=== PATIENT | female | born 1935 | race Caucasian/White ===

== ENCOUNTER 2018-07-08 15:27 | Observation (INO) | payer OTHER ==
--- OUTSIDE RECORDS SUMMARY | 2018-07-08 15:30 | XMS REPORT ---
:1935 Author Organization eClinicalWorks Care Team Providers Name Role Phone Curiel, Na Provider Role Unavailable Allergies No Known Allergies Problems Problem Type Condition Code Onset Dates Condition Status Problem Urinary incontinence, unspecified R32 Active type Problem Urinary tract infection without N39.0 Active hematuria, site unspecified Problem History of aspiration pneumonia Z87.01 Active Problem CKD (chronic kidney disease) stage N18.3 Active 3, GFR 30-59 ml/min Problem Osteoporosis M81.0 Active Problem Unsteady gait R26.81 Active Problem Atrial fibrillation I48.91 Active Problem Depression F32.9 Active Problem Dysphagia R13.10 Active Problem Iron deficiency anemia, D50.9 Active unspecified iron deficiency anemia type Problem Aspiration into airway, subsequent T17.908D Active encounter Problem Gastro-esophageal reflux disease K21.9 Active without esophagitis Problem Diaphragmatic hernia without K44.9 Active obstruction or gangrene Problem COPD (chronic obstructive J44.9 Active pulmonary disease) Problem Allergic rhinitis J30.9 Active Problem Anemia D64.9 Active Problem Benign essential HTN I10 Active Problem Obese E66.9 Active Problem Osteoarthritis M19.90 Active Problem Barretts esophagus K22.70 Active Problem Overactive bladder N32.81 Active Problem Rhinitis J31.0 Active Problem Cough productive of purulent R05 Active sputum Medications No Known Medications Results No Known Results Summary Purpose eClinicalWorks Submission
--- OUTSIDE RECORDS SUMMARY | 2018-07-08 15:30 | XMS REPORT | Clinical Summary ---
:1935 Author Organization [facility] Address [address] [place] [address] Care Team Providers Name Role Phone Asked, No Pcp Primary Care Provider Unavailable Allergies Active Allergy Reactions Severity Noted Date Comments Levofloxacin Swelling High 06/22/2017 Tongue swelled up and pt states she "nearly choked". Medications Medication Sig Dispensed Refills Start Date End Date Status tiotropium Place 1 capsule 0 Active (SPIRIVA) 18 mcg into inhaler and per inhalation inhale once daily. capsule ipratropium-albuter Take 3 mL by 0 Active ol (DUO-NEB) nebulization 3 0.5-2.5 mg/mL (three) times a nebulizer day. fluticasone Inhale 1 puff 2 0 Active (FLOVENT HFA) 110 (two) times a day. mcg/actuation inhaler acetaminophen-codei Take 1 tablet by 0 Active ne (TYLENOL WITH mouth 2 (two) CODEINE #3) 300-30 times a day. mg per tablet diclofenac Apply 1 0 Active (VOLTAREN) 1 % gel application topically 4 (four) times a day as needed. cephalexin (KEFLEX) Take 500 mg by 0 Active 500 MG capsule mouth daily. rivaroxaban Take 20 mg by 0 Active (XARELTO) 20 mg mouth daily. tablet citalopram (CeleXA) Take 20 mg by 0 Active 20 MG tablet mouth every morning. esomeprazole Take 40 mg by 0 Active (NexIUM) 40 MG mouth daily before capsule breakfast. ferrous sulfate 325 Take 65 mg by 0 Active (65 FE) MG tablet mouth daily. calcium Take 1 tablet by 0 Active carbonate-vitamin mouth 2 (two) D3 500 mg-200 unit times a day with per tablet meals. multivitamin Take 1 tablet by 0 Active (THERAGRAN) tablet mouth daily. vit B comp Take 1 tablet by 0 Active no.5-xmymq-T-biotin mouth daily. (NEPHRO-FOSTER RX) 1-60-300 mg-mg-mcg tablet omega-3 acid ethyl Take 1,200 mg by 0 Active esters (LOVAZA) 1 mouth daily. gram capsule loratadine Take 10 mg by 0 Active (CLARITIN) 10 mg mouth daily. tablet amLODIPine Take 1 tablet (5 30 tablet 0 06/24/2017 07/24/2017 (NORVASC) 5 mg mg total) by mouth tablet daily for 30 days. diltiazem CD Take 1 capsule 30 capsule 0 06/24/2017 07/24/2017 (CardIZEM CD) 120 (120 mg total) by MG 24 hr capsule mouth daily for 30 days. Active Problems Problem Noted Date Atrial fibrillation 06/22/2017 Social History Tobacco Use Types Packs/Day Years Used Date Former Smoker Cigarettes 40 Tobacco Cessation: Counseling Given: Yes Sex Assigned at Date Recorded Not on file Job Start Date Occupation Industry Not on file Not on file Not on file Travel History Travel Start Travel End No recent travel history available. Last Filed Vital Signs Not on file Plan of Treatment Health Maintenance Due Date Last Done Comments SHINGRIX VACCINE (1 of 2) 1985 ZOSTER VACCINE 1995 PNEUMOCOCCAL POLYSACCHARIDE VACCINE AGE 65 AND OVER 2000 PNEUMOCOCCAL-13 2000 INFLUENZA VACCINE 03/07/2018 Results Not on fileafter 07/07/2017 Insurance Payer Benefit Plan / Group Subscriber ID Type Phone Address MEDICARE MEDICARE PART A AND B xxxxxxxxxx Medicare [facility] xxxxxxxxxxx Advance Directives Patient has advance care planning documents on file. For more information, please contact:[place] [address]
--- OUTSIDE RECORDS SUMMARY | 2018-07-08 15:30 | XMS REPORT ---
[...] K22.70 Active Problem Overactive bladder N32.81 Active Assessment Atrial fibrillation I48.91 Active Problem Rhinitis J31.0 Active Problem Cough productive of purulent R05 Active sputum Medications Medication Code System Code Instructions Start End Date Status Dosage Date Nexium [facility] 38027255644 40 MG Orally Once Active 1 capsule a day Results No Known Results Summary Purpose eClinicalWorks Submission
--- OUTSIDE RECORDS SUMMARY | 2018-07-08 15:30 | XMS REPORT ---
:1935 Author Organization eClinicalWorks Care Team Providers Name Role Phone Curiel, Na Provider Role Unavailable Allergies No Known Allergies Problems Problem Type Condition Code Onset Dates Condition Status Problem Overactive bladder N32.81 Active Assessment Aspiration into airway, subsequent T17908D Active encounter Problem Cough productive of purulent R05 Active sputum Assessment Dysphagia R13.10 Active Problem Urinary incontinence, unspecified R32 Active type Problem Urinary tract infection without N39.0 Active hematuria, site unspecified Problem History of aspiration pneumonia Z87.01 Active Problem CKD (chronic kidney disease) stage N18.3 Active 3, GFR 30-59 ml/min Problem Unsteady gait R26.81 Active Problem Osteoporosis M81.0 Active Problem Atrial fibrillation I48.91 Active Problem Dysphagia R13.10 Active Problem Depression F32.9 Active Problem Iron deficiency anemia, D50.9 Active unspecified iron deficiency anemia type Problem Aspiration into airway, subsequent T178D Active encounter Problem Gastro-esophageal reflux disease K21.9 Active without esophagitis Problem Diaphragmatic hernia without K44.9 Active obstruction or gangrene Problem COPD (chronic obstructive J44.9 Active pulmonary disease) Problem Allergic rhinitis J30.9 Active Problem Anemia D64.9 Active Problem Benign essential HTN I10 Active Problem Obese E66.9 Active Problem Osteoarthritis M19.90 Active Problem Barretts esophagus K22.70 Active Problem Rhinitis J31.0 Active Medications No Known Medications Results No Known Results Summary Purpose eClinicalWorks Submission
--- OUTSIDE RECORDS SUMMARY | 2018-07-08 15:30 | XMS REPORT ---
:1935 Author Organization eClinicalWorks Care Team Providers Name Role Phone Curiel, Na Provider Role Unavailable Allergies, Adverse Reactions, Alerts Substance Reaction Event Type Levaquin Info Not Available Drug Allergy Iodine Info Not Available Drug Allergy Problems Problem Type Condition Code Onset Dates Condition Status Assessment Unsteady gait R26.81 Active Assessment CKD (chronic kidney disease) stage N18.3 Active 3, GFR 30-59 ml/min Assessment Osteoarthritis M19.90 Active Assessment Gastro-esophageal reflux disease K21.9 Active without esophagitis Assessment Aspiration into airway, subsequent T178D Active encounter Assessment Diaphragmatic hernia without K44.9 Active obstruction or gangrene Assessment Atrial fibrillation I48.91 Active Problem Osteoarthritis M19.90 Active Assessment COPD (chronic obstructive J44.9 Active pulmonary disease) Problem Overactive bladder N32.81 Active Assessment Iron deficiency anemia, D50.9 Active unspecified iron deficiency anemia type Problem Cough productive of purulent R05 Active sputum Problem History of aspiration pneumonia Z87.01 Active Problem Urinary incontinence, unspecified R32 Active type Problem Unsteady gait R26.81 Active Problem Gastro-esophageal reflux disease K21.9 Active without esophagitis Problem Rhinitis J31.0 Active Problem Barretts esophagus K22.70 Active Problem CKD (chronic kidney disease) stage N18.3 Active 3, GFR 30-59 ml/min Assessment Benign essential HTN I10 Active Problem Aspiration into airway, subsequent T17908D Active encounter Problem Urinary tract infection without N39.0 Active hematuria, site unspecified Problem Diaphragmatic hernia without K44.9 Active obstruction or gangrene Problem Iron deficiency anemia, D50.9 Active unspecified iron deficiency anemia type Problem Atrial fibrillation I48.91 Active Problem Osteoporosis M81.0 Active Problem Obese E66.9 Active Problem Depression F32.9 Active Problem COPD (chronic obstructive J44.9 Active pulmonary disease) Problem Allergic rhinitis J30.9 Active Problem Anemia D64.9 Active Problem Benign essential HTN I10 Active Medications Medication Code Code Instructions Start End Status Dosage System Date Date Diltiazem HCl NDC 50373458507 120 MG Orally Active 1 capsule on ER Once a day an empty stomach in the morning Keflex ND 21182714564 250 MG Orally December 05May Active 1 capsule as directed 2017 Lasix ND 64697955857 40 MG Orally Sep 21, Active 1 tablet twice a day 2017 Spiriva ND 66162658738 18 MCG Active 1 capsule HandiHaler Inhalation Once a day Xarelto [facility] 51912867844 20 MG Orally Active 1 tablet with Once a day food Amiodarone HCl ND 05778557835 200 MG Orally Active 1 tablet Once a day Claritin ND 29417255759 10 MG Orally Active 1 tablet Once a day Prolia [facility] 78367646271 60 MG/ML Active not defined Subcutaneous Breo Ellipta [facility] 89939077453 100-25 MCG/INH Active 1 puff Inhalation Once a day Ventolin HFA [facility] 29848457408 108 (90 Base) Active 2 puffs as MCG/ACT needed Inhalation every 6 hrs Clotrimazole [facility] 38190883744 1 % Externally Active 1 application Twice a day to affected area Ketoconazole ND 39411004595 2 % Externally Active 1 application Once a day to affected area Nexium ND 55182206665 40 MG Orally Active 1 capsule Once a day Celexa ND 06528274963 20 MG Orally Active 1 tablet Once a day Flomax ND 77229388183 0.4 MG Orally Rhett Active 1 capsule Once a day 2018 Estrace ND 08349106508 0.1 MG/GM November Active as directed Vaginal twice 2017 weekly Multivitamin ND 09150886493 - Orally Active not defined Adult Results No Known Results Summary Purpose eClinicalWorks Submission
--- OUTSIDE RECORDS SUMMARY | 2018-07-08 15:30 | XMS REPORT ---
[...] purulent R05 Active sputum Medications Medication Code Code Instructions Start End Date Status Dosage System Date Spiriva [facility][NOTE 3] 66862708364 2.5 microgram January 15January 10, Active 2 puffs Respimat Inhaled Once a 20172018 Results No Known Results Summary Purpose [employer] Submission
--- OUTSIDE RECORDS SUMMARY | 2018-07-08 15:31 | XMS REPORT ---
:1935 Author Organization eClinicalWorks Care Team Providers Name Role Phone Sa[place]ie Provider Role Unavailable Allergies, Adverse Reactions, Alerts [...] Obese E66.9 Active Problem Osteoarthritis M19.90 Active Assessment Urinary tract infection without N39.0 Active hematuria, site unspecified Problem Barretts esophagus K22.70 Active Problem Overactive bladder N32.81 Active Problem Rhinitis J31.0 Active Problem Cough productive of purulent R05 Active sputum Medications Medication Code Code Instructions Start End Status Dosage System Date Date Cephalexin [facility] 45475030168 250 MG Orally March 01Aug Active 1 capsule daily 2017 Diltiazem HCl [facility] 00495025191 120 MG Orally Active 1 capsule on ER Once a day an empty stomach in the morning Amiodarone HCl ND 83164424049 200 MG Orally Active 1 tablet Once a day Flomax ND 83913055368 0.4 MG Orally Aug Active 1 capsule Once a day 2018 Keflex [facility] 36654400845 250 MG Orally December 05May Active 1 capsule as directed 2017 Ketoconazole ND 91930101303 2 % Externally Active 1 application Once a day to affected area Breo Ellipta ND 18953550143 100-25 MCG/INH Active 1 puff Inhalation Once a day Nexium ND 66045705524 40MG Active TAKE 1 CAPSULE DAILY Prolia ND 95995970741 60 MG/ML Active not defined Subcutaneous Spiriva ND 82985070638 2.5 microgram January 15January Active 2 puffs Respimat Inhaled Once a 2017 Xarelto ND 10591499031 20 MG Orally Active 1 tablet with Once a day food Clotrimazole ND 24181353013 1 % Externally Active 1 application Twice a day to affected area Ventolin HFA ND 99006033754 108 (90 Base) Active 2 puffs as MCG/ACT needed Inhalation every 6 hrs Spiriva ND 63627195105 18 MCG Active 1 capsule HandiHaler Inhalation Once a day Pacerone ND 29443452369 200MG Active TAKE 1 TABLET DAILY Lasix ND 13591125617 40 MG Orally Active 1 tablet twice a day Celexa ND 28274567766 20 MG Orally Active 1 tablet Once a day Claritin [facility] 02120482474 10 MG Orally Active 1 tablet Once a day Potassium [facility] 03614264639 8 MEQ Orally January 22Jul Active 1 tablet with Chloride ER Twice a day 2017 Estrace ND 82016175253 0.1 MG/GM November Active as directed Vaginal twice 2017 weekly Multivitamin [facility] 46434331538 - Orally Active not defined Adult Results Name Result Date Reference Range Unit Abnormality Flag URINALYSIS AUTO W/O SCOPE (32879) ----LEONEL trace 20180301 ----NIT pos [id number] ----PROTEIN neg [id number] ----pH 6.0 20180301 ----GLUCOSE neg [id number] ----KETONES neg [id number] ----SPECIFIC GRAVITY 1.015 20180301 ----BLO neg [id number] Summary Purpose eClinicalWorks Submission
--- OUTSIDE RECORDS SUMMARY | 2018-07-08 15:31 | XMS REPORT ---
:1935 Author Organization eClinicalWorks Care Team Providers Name Role Phone Curiel, Na Provider Role Unavailable Allergies No Known Allergies Problems Problem Type Condition Code Onset Dates Condition Status Problem Urinary incontinence, unspecified R32 Active type Problem Depression F32.9 Active Problem History of aspiration pneumonia Z87.01 Active Problem Atrial fibrillation I48.91 Active Problem Urinary tract infection without N39.0 Active hematuria, site unspecified Problem Diaphragmatic hernia without K44.9 Active obstruction or gangrene Problem Iron deficiency anemia, D50.9 Active unspecified iron deficiency anemia type Problem 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 Active Problem COPD with lower respiratory J44.0 Active infection Problem Benign essential HTN I10 Active Problem Anemia D64.9 Active Problem Dysphagia R13.10 Active Problem Osteoporosis M81.0 Active Problem Unsteady gait R26.81 Active Problem Gastro-esophageal reflux disease K21.9 Active without esophagitis Problem Aspiration into airway, subsequent T17.908D Active encounter Problem CKD (chronic kidney disease) stage N18.3 Active 3, GFR 30-59 ml/min Problem Barretts esophagus K22.70 Active Problem Rhinitis J31.0 Active Problem COPD (chronic obstructive J44.9 Active pulmonary disease) Problem Allergic rhinitis J30.9 Active Problem Overactive bladder N32.81 Active Problem Cough productive of purulent R05 Active sputum Problem Obese E66.9 Active Problem Osteoarthritis M19.90 Active Medications No Known Medications Results No Known Results Summary Purpose eClinicalWorks Submission
--- OUTSIDE RECORDS SUMMARY | 2018-07-08 15:31 | XMS REPORT ---
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 Assessment Diaphragmatic hernia without K44.9 Active obstruction or gangrene Assessment Iron deficiency anemia, D50.9 Active unspecified iron deficiency anemia type Assessment Atrial fibrillation I48.91 Active Assessment Dependence on supplemental oxygen Z99.81 Active Assessment Chronic obstructive pulmonary J44.9 Active disease Problem Urinary incontinence, unspecified R32 Active type [...] 30-59 ml/min Problem Barretts esophagus K22.70 Active Assessment CKD (chronic kidney disease) stage N18.3 Active 3, GFR 30-59 ml/min Problem Rhinitis J31.0 Active Problem COPD (chronic obstructive J44.9 Active pulmonary disease) Problem Allergic rhinitis J30.9 Active Problem Overactive bladder N32.81 Active Problem Cough productive of purulent R05 Active sputum Problem Obese E66.9 Active Problem Osteoarthritis M19.90 Active Medications Medication Code Code Instructions Start End Status Dosage System Date Date Pacerone [facility] 72542279398 200MG Active TAKE 1 TABLET DAILY Lasix ND 23102490484 40 MG Orally Active 1 tablet twice a day Spiriva [facility] 66770302359 2.5 microgram January Active 2 puffs Respimat Inhaled Once a , , day 2017 2018 Potassium [facility] 74379449495 8 MEQ Orally January Active 1 tablet with Chloride ER Twice a day 18, , food 2017 2017 Ventolin HFA [facility] 33987487404 108 (90 Base) Active 2 puffs as MCG/ACT needed Inhalation every 6 hrs Celexa [facility] 62821623922 20 MG Orally Active 1 tablet Once a day Diltiazem HCl [facility] 94386670250 120 MG Orally Active 1 capsule on ER Once a day an empty stomach in the morning Clotrimazole [facility] 96143861431 1 % Externally Active 1 application Twice a day to affected area Nexium ND 22227982164 40MG Inactive TAKE 1 CAPSULE DAILY Cephalexin ND 07020308296 250 MG Orally February Active 1 capsule daily , 2017 Amiodarone HCl [facility] 59729214248 200 MG Orally Sept Active 1 tablet Once a day 2017 Claritin [facility] 97397252991 10 MG Orally Active 1 tablet Once a day Amiodarone HCl [facility] 41999522913 200 MG Orally Active 1 tablet Once a day Furosemide ND 50107889249 40 MG Active TAKE 1 TABLET TWICE A DAY Breo Ellipta [facility] 61172554492 100-25 MCG/INH Active 1 puff Inhalation Once a day Spiriva [facility] 10901670601 18 MCG Active 1 capsule HandiHaler Inhalation Once a day Flomax [facility] 82633690139 0.4 MG Orally Aug Active 1 capsule Once a day 2018 Keflex ND 24471986553 250 MG Orally December 05May Active 1 capsule as directed 2017 Ketoconazole [facility] 15614833523 2 % Externally Active 1 application Once a day to affected area Estrace ND 20143475485 0.1 MG/GM Active as directed Vaginal twice weekly Xarelto [facility] 67153417706 20 MG Orally Active 1 tablet with Once a day food Pantoprazole [facility] 49118345537 40 MG Orally Active 1 tablet Sodium Once a day Multivitamin [facility] 96497204597 - Orally Active not defined Adult Prolia [facility] 73098548597 60 MG/ML Active not defined Subcutaneous Results No Known Results Summary Purpose eClinicalWorks Submission
--- OUTSIDE RECORDS SUMMARY | 2018-07-08 15:31 | XMS REPORT ---
[...] Start End Date Status Dosage System Date Potassium [facility] 22356467258 8 MEQ Orally January 22Jul 21, Active 1 tablet Chloride ER Twice a day 2017 2017 with food Results No Known Results Summary Purpose eClinicalWorks Submission
--- OUTSIDE RECORDS SUMMARY | 2018-07-08 15:31 | XMS REPORT ---
:1935 Author Organization eClinicalWorks Care Team Providers Name Role Phone Curiel, Na Provider Role Unavailable Allergies, Adverse Reactions, Alerts Substance Reaction Event Type Levaquin Info Not Available Drug Allergy Iodine Info Not Available Drug Allergy Problems Problem Type Condition Code Onset Dates Condition Status Assessment Atrial fibrillation I48.91 Active Assessment CKD (chronic kidney disease) stage N18.3 Active 3, GFR 30-59 ml/min Assessment Diaphragmatic hernia without K44.9 Active obstruction or gangrene Assessment Gastro-esophageal reflux disease K21.9 Active without esophagitis Assessment Iron deficiency anemia, D50.9 Active unspecified iron deficiency anemia type Assessment 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 Active Assessment Benign essential HTN I10 Active Assessment COPD with lower respiratory J44.0 Active infection Problem Urinary incontinence, unspecified R32 Active type [...] N18.3 Active 3, GFR 30-59 ml/min Assessment Unsteady gait R26.81 Active Problem Barretts esophagus K22.70 Active Assessment Osteoarthritis M19.90 Active Problem Rhinitis J31.0 Active Problem COPD (chronic obstructive J44.9 Active pulmonary disease) Problem Allergic rhinitis J30.9 Active Problem Overactive bladder N32.81 Active Problem Cough productive of purulent R05 Active sputum Problem Obese E66.9 Active Problem Osteoarthritis M19.90 Active Medications Medication Code Code Instructions Start End Status Dosage System Date Date Lasix [facility] 86164639577 40 MG Orally Active 1 tablet twice a day Potassium ND 07312967798 8 MEQ Orally January Active 1 tablet with Chloride ER Twice a day 18, , 2017 Spiriva [facility] 85045982926 2.5 microgram January Active 2 puffs Respimat Inhaled Once a , 2017 Keflex [facility] 67573931099 250 MG Orally December 05May Active 1 capsule as directed 2017 Breo Ellipta [facility] 30919837465 100-25 MCG/INH Active 1 puff Inhalation Once a day Diltiazem HCl ND 25442973232 120 MG Orally Active 1 capsule on ER Once a day an empty stomach in the morning Spiriva [facility] 72243712966 18 MCG Active 1 capsule HandiHaler Inhalation Once a day Pacerone [facility] 27670725557 200MG Active TAKE 1 TABLET DAILY Estrace [facility] 56348601087 0.1 MG/GM November Active as directed Vaginal twice 12, 2017 Amiodarone HCl [facility] 59463304816 200 MG Orally Active 1 tablet Once a day Celexa ND 77152207241 20 MG Orally Active 1 tablet Once a day Pantoprazole ND 20561967501 40 MG Orally Mar 15, Active 1 tablet Sodium Once a day 2017 Clotrimazole [facility] 04742924338 1 % Externally Active 1 application Twice a day to affected area Ketoconazole ND 64740500741 2 % Externally Active 1 application Once a day to affected area Prolia [facility] 79430491373 60 MG/ML Active not defined Subcutaneous Flomax ND 43066720564 0.4 MG Orally Aug Active 1 capsule Once a day 2018 Cephalexin ND 32789054376 250 MG Orally February Active 1 capsule daily 2017 Claritin ND 99158801857 10 MG Orally Active 1 tablet Once a day Nexium ND 65558567178 40MG Inactive TAKE 1 CAPSULE DAILY Ventolin HFA [facility] 48526325868 108 (90 Base) Active 2 puffs as MCG/ACT needed Inhalation every 6 hrs Multivitamin [facility] 52776653012 - Orally Active not defined Adult Xarelto [facility] 14757974293 20 MG Orally Active 1 tablet with Once a day food Results No Known Results Summary Purpose eClinicalWorks Submission
[2018-07-08] MEDS ORDERED: METHYLPREDNISOLONE 125 MG INJ ONE (15:58)
[2018-07-08] MEDS ORDERED: LEVALBUTEROL 0.63 MG/3 ML NEB ONE (15:58)
[2018-07-08 16:13] LABS: Absolute Lymphocytes (CBC) 1.3 K/uL (0.7-4.9); Absolute Monocytes 0.6 K/uL (0.1-1.3); Absolute Neutrophil 5.4 K/uL (1.8-8.0); Basophils % 0.8 % (0-1.3); Eosinophils % 2.2 % (0-4.4); Hematocrit 31.8 % (36.0-45.0); Lymphocytes % 17.8 % (15.3-44.8); MCH 31.8 pg (27.0-35.0); MCV 94.2 fL (80-100); MPV 8.5 fL (7.6-11.3); Monocytes % 8.2 % (3.3-12.3); RBC Red Blood Cell Count 3.38 M/uL (3.86-4.86)
[2018-07-08 16:14] LABS: Protime INR 1.26
[2018-07-08 16:27] LABS: ALT/SGPT 16 U/L (12-78); AST/SGOT 13 U/L (15-37); Alkaline Phosphatase 92 U/L (45-117); BUN Blood Urea Nitrogen 15 mg/dL (7-18); Bicarbonate 30 mmol/L (21-32); Bilirubin Direct < 0.1 mg/dL (0-0.2); Bilirubin Total 0.2 mg/dL (0.2-1.0); Glucose Level 95 mg/dL (74-106); Magnesium 2.4 mg/dL (1.8-2.4); NT PRO-BNP 641 pg/mL (<450); Potassium 3.9 mmol/L (3.5-5.1); Protein, Total 6.9 g/dL (6.4-8.2); Sodium Level 138 mmol/L (136-145); Troponin (Emerg Dept Use Only) < 0.02 ng/mL (0.0-0.045)
--- NOTE | 2018-07-08 16:31 | RAD REPORT ---
EXAM DESCRIPTION: RAD - Chest Single View - 07/08/2018 4:22 pm CLINICAL HISTORY: Shortness of breath, viral infiltrate symptoms COMPARISON: March 26 TECHNIQUE: AP portable chest image was obtained 1618 hours . FINDINGS: No focal consolidation or mass. Failure is not suspected. Patient has very extensive chron ic interstitial lung disease. Current presentation is not clearly different from prior imaging. Howev er, early interstitial edema or infiltrate is easily masked by the chronic disease. Heart and vasculature are normal. No measurable pleural effusion and no pneumothorax. No acute bony abnormality seen. No acute aortic findings suspected. IMPRESSION: Extensive chronic interstitial lung disease is present and could mask early edema or inf iltrate. No mass, consolidation or significant failure finding.
--- NOTE | 2018-07-08 19:26 | ER ---
Nurse's Notes [facility] Name: Jazmine Waggoner Age: 83 yrs Sex: Female : 1935 Arrival Date: 07/08/2018 Time: 15:30 Bed 28 Private MD: Laurel Curiel Diagnosis: Chronic obstructive pulmonary disease with (acute) exacerbation Presentation: 07/08 15:35 Presenting complaint: Patient states: I have had a cold I cant kick and I get PNE a lot la1 when this happens. Transition of care: patient was not received from another setting of care. Onset of symptoms was July 08, 2018. Risk Assessment: Do you want to hurt yourself or someone else? Patient reports no desire to harm self or others. Initial Sepsis Screen: Does the patient meet any 2 criteria? No. Patient's initial sepsis screen is negative. Does the patient have a suspected source of infection? No. Patient's initial sepsis screen is negative. Care prior to arrival: None. 15:35 Method Of Arrival: Wheelchair la1 15:35 Acuity: PHI 3 la1 Historical: - Allergies: 15:33 CONTRAST DYE; la1 15:33 Levaquin; la1 19:42 Spiriva with HandiHaler; mg2 - Home Meds: 19:42 acetaminophen 325 mg Oral tab 2 tabs every 6 hours for Arthritic Pain, Fever [Active]; mg2 acetaminophen 650 mg Rectal supp 1 suppository every 6 hours for Arthritic Pain, Fever [Active]; ascorbic acid (vitamin C) 1 tab daily [Active]; Atrovent 0.03 % Nasal spry [Active]; Breo Ellipta 100-25 mcg/dose inhalation dsdv 1 puff once daily [Active]; calcium tablet 1 tab twice a day [Active]; citalopram 20 mg tab once daily [Active]; diltiazem HCl 120 mg Oral cpER 2 caps once daily [Active]; docusate sodium 100 mg Oral cap 1 cap once daily [Active]; Fish Oil 1,000 mg Oral cap daily [Active]; fluticasone furoate-vilanterol 100-25mcg 2 spray daily [Active]; folic acid 1 mg Oral tab 1 tab once daily [Active]; furosemide 20 mg Oral tab 1 tab 2 times per day [Active]; Kassandra-Lanta 200-200-20 mg/5 mL Oral susp 30 mL every 4 hours [Active]; Kassandra-Tussin 100 mg/5 mL Oral liqd 5 mL every 6 hours [Active]; ipratropium bromide inhalation [Active]; ipratropium-albuterol inhalation Inhl [Active]; melatonin 3 mg Oral tab nightly [Active]; Milk of Magnesia 400 mg/5 mL Oral susp 30 mL once daily for constipation [Active]; Mucinex 600 mg Oral Ta12 every 12 hours [Active]; Nexium 40 mg Oral cpDR 1 cap once daily [Active]; Prolia 60 mg/mL subcutaneous syrg 1 mL every 6 mo [Active]; Pylera 140-125-125 mg Oral cap 4 times per day [Active]; sotalol 80 mg Oral tab 1 tab 2 times per day [Active]; Spiriva Respimat 2.5 mcg/actuation inhalation mist 2 puffs once daily [Active]; vitamin E 400 unit Oral cap daily [Active]; Xarelto 20 mg Oral tab 1 tab once daily [Active]; - PMHx: 15:33 Atrial Fib; COPD; GERD; Hypertension; la1 - Immunization history:: Adult Immunizations up to date. - Social history:: Smoking status: Patient/guardian denies using tobacco, the patient reports quitting approximately 10 years ago. - Ebola Screening: : No symptoms or risks identified at this time. Screenin:42 Abuse screen: Denies threats or abuse. Denies injuries from another. Nutritional mg2 screening: No deficits noted. Tuberculosis screening: No symptoms or risk factors identified. Fall Risk IV access (20 points). Assessment: 16:40 General: Appears in no apparent distress. comfortable, Behavior is calm, cooperative. mg2 Pain: Complains of pain in chest Pain does not radiate. Pain currently is 2 out of 10 on a pain scale. Quality of pain is described as aching. Neuro: Level of Consciousness is awake, alert, obeys commands, Oriented to person, place, time, situation. Cardiovascular: Capillary refill < 3 seconds Patient's skin is warm and dry. Rhythm is sinus rhythm. Respiratory: Airway is patent Respiratory effort is even, unlabored, Respiratory pattern is regular, symmetrical, cough. GI: No deficits noted. : No deficits noted. EENT: Throat is clear Reports pain in throat. Derm: Skin is intact, is healthy with good turgor, Skin is pink, warm \T\ dry. normal. Musculoskeletal: No signs and/or symptoms reported regarding the musculoskeletal system. 17:39 Reassessment: Patient appears in no apparent distress at this time. Patient and/or mg2 family updated on plan of care and expected duration. Pain level reassessed. Patient is alert, oriented x 3, equal unlabored respirations, skin warm/dry/pink. 19:38 Reassessment: Patient appears in no apparent distress at this time. Patient and/or mg2 family updated on plan of care and expected duration. Pain level reassessed. Patient is alert, oriented x 3, equal unlabored respirations, skin warm/dry/pink. advised for admission. patient agreed. 21:05 Reassessment: LG Smith will call back to receive the report. mg2 Vital Signs: 15:35 BP 130 / 54; Pulse 76; Resp 18; Temp 99.3(TE); Pulse Ox 93% on 2 lpm NC; Weight 74.39 la1 kg; 17:42 BP 150 / 75; Pulse 67; Resp 18; Temp 98.3; Pulse Ox 95% on 2 lpm NC; Pain 0/10; mg2 19:38 BP 160 / 85; Pulse 82; Resp 18; Pulse Ox 96% on 2 lpm NC; Pain 0/10; mg2 20:53 BP 120 / 49; Pulse 81; Resp 18; Temp 98.7(O); Pulse Ox 95% on 2 lpm NC; Pain 0/10; mg2 ED Course: 15:30 Patient arrived in ED. sb2 15:30 Laurel Curiel MD is Private Physician. sb2 15:33 Arm band placed on right wrist. la1 15:35 Triage completed. la1 15:38 Brett Flower PA is PHCP. jmm 15:38 Wilman Oliveira MD is Attending Physician. jmm 15:48 José Luis Tang RN is Primary Nurse. mg2 16:22 XRAY Chest (1 view) In Process Unspecified. EDMS 16:42 Patient has correct armband on for positive identification. mg2 16:42 No provider procedures requiring assistance completed. Inserted saline lock: 20 gauge mg2 in left antecubital area, using aseptic technique. Blood collected. 19:25 Babita Will MD is Hospitalizing Provider. [facility] 21:05 Patient admitted, IV remains in place. mg2 Administered Medications: 16:04 Drug: SOLU-Medrol 125 mg Route: IVP; Site: left antecubital; mg2 16:52 Follow up: Response: No adverse reaction; Marked relief of symptoms mg2 16:05 Drug: Xopenex (3) 1.25 mg Route: Inhalation; mg2 16:53 Follow up: Response: No adverse reaction mg2 19:33 Drug: AZITHromycin 500 mg Route: PO; mg2 20:54 Follow up: Response: No adverse reaction mg2 19:38 Drug: Rocephin - (cefTRIAXone) 1 grams Route: IVPB; Infused Over: 30 mins; Site: left mg2 antecubital; 20:54 Follow up: Response: No adverse reaction; IV Status: Completed infusion mg2 Outcome: 19:26 Decision to Hospitalize by Provider. m 21:28 Admitted to Tele accompanied by nurse, via wheelchair, room 426, with oxygen, with mg2 chart, Report called to LG Smith 21:28 Condition: stable 21:28 Instructed on the need for admit, Demonstrated understanding of instructions. 21:43 Patient left the ED. mg2 Signatures: Dispatcher [employer] EDMS Brett Flower PA PA [facility] Kade Morales, RN RN la1 Franca Poole sb2 José Luis Tang RN RN mg2 Corrections: (The following items were deleted from the chart) 19:39 19:38 Reassessment: Patient appears in no apparent distress at this time. Patient mg2 and/or family updated on plan of care and expected duration. Pain level reassessed. Patient is alert, oriented x 3, equal unlabored respirations, skin warm/dry/pink. mg2 19:43 19:38 Pulse 82bpm; Resp 18bpm; Pulse Ox 96% 2 lpm Nasal Cannula; Pain 0/10; mg2 mg2
--- NOTE | 2018-07-08 19:27 | EDPHYS ---
Physician Documentation [facility] Name: Jazmine Waggoner Age: 83 yrs Sex: Female : 1935 Arrival Date: 07/08/2018 Time: 15:30 Bed 28 Private MD: Laurel Curiel ED Physician Wilman Oliveira HPI: 07/08 15:50 This 83 yrs old Female presents to ER via Wheelchair with complaints of Chest jmm Congestion, COPD Exacerbation. 15:50 The patient has shortness of breath at rest. Onset: The symptoms/episode began/occurred jmm gradually, 1 week(s) ago. Duration: The symptoms are continuous. Associated signs and symptoms: Pertinent positives: productive cough. This is an 83 year old female with a history of atrial fib, copd, GERD, HTN that presents to the ED with cough, congestion, progressively worsening SOB over the past week. Patient denies chest pain. . Historical: - Allergies: 15:33 CONTRAST DYE; la1 15:33 Levaquin; la1 19:42 Spiriva with HandiHaler; mg2 - Home Meds: 19:42 acetaminophen 325 mg Oral tab 2 tabs every 6 hours for Arthritic Pain, Fever [Active]; mg2 acetaminophen 650 mg Rectal supp 1 suppository every 6 hours for Arthritic Pain, Fever [Active]; ascorbic acid (vitamin C) 1 tab daily [Active]; Atrovent 0.03 % Nasal spry [Active]; Breo Ellipta 100-25 mcg/dose inhalation dsdv 1 puff once daily [Active]; calcium tablet 1 tab twice a day [Active]; citalopram 20 mg tab once daily [Active]; diltiazem HCl 120 mg Oral cpER 2 caps once daily [Active]; docusate sodium 100 mg Oral cap 1 cap once daily [Active]; Fish Oil 1,000 mg Oral cap daily [Active]; fluticasone furoate-vilanterol 100-25mcg 2 spray daily [Active]; folic acid 1 mg Oral tab 1 tab once daily [Active]; furosemide 20 mg Oral tab 1 tab 2 times per day [Active]; Kassandra-Lanta 200-200-20 mg/5 mL Oral susp 30 mL every 4 hours [Active]; Kassandra-Tussin 100 mg/5 mL Oral liqd 5 mL every 6 hours [Active]; ipratropium bromide inhalation [Active]; ipratropium-albuterol inhalation Inhl [Active]; melatonin 3 mg Oral tab nightly [Active]; Milk of Magnesia 400 mg/5 mL Oral susp 30 mL once daily for constipation [Active]; Mucinex 600 mg Oral Ta12 every 12 hours [Active]; Nexium 40 mg Oral cpDR 1 cap once daily [Active]; Prolia 60 mg/mL subcutaneous syrg 1 mL every 6 mo [Active]; Pylera 140-125-125 mg Oral cap 4 times per day [Active]; sotalol 80 mg Oral tab 1 tab 2 times per day [Active]; Spiriva Respimat 2.5 mcg/actuation inhalation mist 2 puffs once daily [Active]; vitamin E 400 unit Oral cap daily [Active]; Xarelto 20 mg Oral tab 1 tab once daily [Active]; - PMHx: 15:33 Atrial Fib; COPD; GERD; Hypertension; la1 - Immunization history:: Adult Immunizations up to date. - Social history:: Smoking status: Patient/guardian denies using tobacco, the patient reports quitting approximately 10 years ago. - Ebola Screening: : No symptoms or risks identified at this time. ROS: 19:20 Constitutional: Negative for fever, chills, and weight loss, Eyes: Negative for injury, jmm pain, redness, and discharge, ENT: Negative for injury, pain, and discharge, Neck: Negative for injury, pain, and swelling. 19:20 Abdomen/GI: Negative for abdominal pain, nausea, vomiting, diarrhea, and constipation, Back: Negative for injury and pain, MS/Extremity: Negative for injury and deformity, Skin: Negative for injury, rash, and discoloration, Neuro: Negative for headache, weakness, numbness, tingling, and seizure. 19:20 ENT: Positive for sore throat. 19:20 Respiratory: Positive for cough, shortness of breath. 19:20 All other systems are negative. Exam: 19:20 Head/Face: atraumatic. Eyes: EOMI, no conjunctival erythema appreciated ENT: Moist jmm Mucus Membranes Chest/axilla: Normal chest wall appearance and motion. Cardiovascular: Regular rate and rhythm. No edema appreciated 19:20 Abdomen/GI: Non distended, soft Back: Normal ROM Skin: General appearance color normal MS/ Extremity: Moves all extremities, no obvious deformities appreciated, no edema noted to the lower extremities Neuro: Awake and alert, normal gait Psych: Behavior is normal, Mood is normal, Patient is cooperative and pleasant 19:20 Constitutional: The patient appears in no acute distress, alert, awake. 19:20 Respiratory: mild respiratory distress is noted, Respirations: normal, Breath sounds: decreased breath sounds, that are mild, are located in both bases. Vital Signs: 15:35 BP 130 / 54; Pulse 76; Resp 18; Temp 99.3(TE); Pulse Ox 93% on 2 lpm NC; Weight 74.39 la1 kg; 17:42 BP 150 / 75; Pulse 67; Resp 18; Temp 98.3; Pulse Ox 95% on 2 lpm NC; Pain 0/10; mg2 19:38 BP 160 / 85; Pulse 82; Resp 18; Pulse Ox 96% on 2 lpm NC; Pain 0/10; mg2 20:53 BP 120 / 49; Pulse 81; Resp 18; Temp 98.7(O); Pulse Ox 95% on 2 lpm NC; Pain 0/10; mg2 MDM: 15:39 Patient medically screened. [facility] 19:20 Data reviewed: vital signs, nurses notes, lab test result(s), EKG, radiologic studies. [facility] Data interpreted: Pulse oximetry: on 2L(s) per nasal canula, is 95 %. Interpretation: acceptable. Response to treatment: the patient's symptoms have mildly improved after treatment. ED course: I discussed the patient with Dr. Will whom accepted admission. . 19:38 Counseling: I had a detailed discussion with the patient and/or guardian regarding: the [facility] historical points, exam findings, and any diagnostic results supporting the discharge/admit diagnosis, lab results, radiology results, the need for further work-up and treatment in the hospital. 07/08 15:47 Order name: Basic Metabolic Panel [facility] 07/08 15:47 Order name: CBC with Diff; Complete Time: 16:25 [facility] 07/08 15:47 Order name: LFT's; Complete Time: 16:36 [facility] 07/08 15:47 Order name: Magnesium; Complete Time: 16:36 [facility] 07/08 15:47 Order name: NT PRO-BNP; Complete Time: 16:36 [facility] 07/08 15:47 Order name: PT-INR; Complete Time: 16:25 [facility] 07/08 15:47 Order name: Troponin (emerg Dept Use Only); Complete Time: 16:36 [facility] 07/08 15:48 Order name: Basic Metabolic Panel; Complete Time: 16:36 [facility] 07/08 15:54 Order name: Influenza Screen (a \T\ B); Complete Time: 17:40 [facility] 07/08 16:02 Order name: Strep; Complete Time: 17:11 [facility] 07/08 16:41 Order name: Procalcitonin; Complete Time: 17:55 [facility] 07/08 16:41 Order name: Lactate; Complete Time: 17:40 [facility] 07/08 16:41 Order name: Blood Culture Adult (2) [facility] 07/08 16:59 Order name: Throat Culture [facility] 07/08 15:47 Order name: XRAY Chest (1 view); Complete Time: 16:36 [facility] 07/08 15:47 Order name: EKG; Complete Time: 15:48 [facility] 07/08 15:47 Order name: Cardiac monitoring; Complete Time: 16:40 [facility] 07/08 15:47 Order name: EKG - Nurse/Tech; Complete Time: 16:40 [facility] 07/08 15:47 Order name: IV Saline Lock; Complete Time: 16:40 [facility] 07/08 15:47 Order name: Labs collected and sent; Complete Time: 16:40 [facility] 07/08 15:47 Order name: O2 Per Protocol; Complete Time: 16:40 [facility] 07/08 15:47 Order name: O2 Sat Monitoring; Complete Time: 16:40 [facility] Administered Medications: 16:04 Drug: SOLU-Medrol 125 mg Route: IVP; Site: left antecubital; mg2 16:52 Follow up: Response: No adverse reaction; Marked relief of symptoms mg2 16:05 Drug: Xopenex (3) 1.25 mg Route: Inhalation; mg2 16:53 Follow up: Response: No adverse reaction mg2 19:33 Drug: AZITHromycin 500 mg Route: PO; mg2 20:54 Follow up: Response: No adverse reaction mg2 19:38 Drug: Rocephin - (cefTRIAXone) 1 grams Route: IVPB; Infused Over: 30 mins; Site: left mg2 antecubital; 20:54 Follow up: Response: No adverse reaction; IV Status: Completed infusion mg2 Disposition: 07/09 07:37 Co-signature as Attending Physician, Wilman Oliveira MD I agree with the assessment and ishmael plan of care. Disposition: 07/08/18 19:26 Hospitalization ordered by Babita Will for Observation. Preliminary diagnosis is Chronic obstructive pulmonary disease with (acute) exacerbation. - Bed requested for Telemetry/MedSurg (observation). - Status is Observation. mg2 - Condition is Stable. - Problem is new. - Symptoms are unchanged. UTI on Admission? No Signatures: Dispatcher [employer] EDMS Yasmin Mccallum, RN RN Wilman Mendez MD MD cha Mickail, Joel, PA PA Kade Manzo RN RN la1 José Luis Tang RN RN mg2 Corrections: (The following items were deleted from the chart) 07/08 20:48 19:26 Hospitalization Ordered by Babita Will MD for Observation. Preliminary kl diagnosis is Chronic obstructive pulmonary disease with (acute) exacerbation. Bed requested for Telemetry/MedSurg (observation). Status is Observation. Condition is Stable. Problem is new. Symptoms are unchanged. UTI on Admission? No. [facility] 21:43 20:48 07/08/2018 19:26 Hospitalization Ordered by Babita Will MD for Observation. mg2 Preliminary diagnosis is Chronic obstructive pulmonary disease with (acute) exacerbation. Bed requested for Telemetry/MedSurg (observation). Status is Observation. Condition is Stable. Problem is new. Symptoms are unchanged. UTI on Admission? No. sunday
[2018-07-08] MEDS ORDERED: CEFTRIAXONE/SWI 1gm 1 GM/10 ML SYR ONE (19:28)
[2018-07-08] MEDS ORDERED: AZITHROMYCIN 250 MG TAB ONE (19:28)
[2018-07-08] MEDS ORDERED: ACETAMINOPHEN 500 MG TAB PO PRN (20:08)
[2018-07-08] MEDS ORDERED: ONDANSETRON 4 MG/2 ML VIAL IV PRN (20:08)
[2018-07-08] MEDS ORDERED: MAGNESIUM HYDROXIDE 8% 30 ML PO PRN (20:08)
[2018-07-08] MEDS ORDERED: METHYLPREDNISOLONE 40 MG INJ IV ONE (20:08)
[2018-07-08] MEDS: HOME MED 1 EA UNK (Ipratropium/Albuterol Sulfate [Iprat-Albut 0.5-3(2.5) Mg/3 Ml] 1 INH) IH SCH (21:00)
[2018-07-08] MEDS: MELATONIN 5 MG TABLET PO SCH (21:00)
[2018-07-08] MEDS: FLUTICASONE IH SCH (21:00)
[2018-07-08] MEDS ORDERED: NA CHLORIDE 0.9% 1,000 ML IV SCH (21:00)
[2018-07-08] MEDS: VILANTEROL IH SCH (21:00)
[2018-07-08] MEDS: FUROSEMIDE 20 MG TABLET PO SCH (21:00)
[2018-07-08] MEDS: OXYBUTYNIN CHLORIDE 5 MG TAB PO SCH (21:00)
[2018-07-08 22:25] VITALS: BMI 24.9
[2018-07-09] MEDS: ALBUTEROL 2.5 MG/3 ML NEB SOL NEB SCH ×2 (01:10→07:40)
[2018-07-09] MEDS: IPRATROPIUM BROM 0.5MG/2.5ML NEB SCH ×4 (01:10→19:47)
[2018-07-09] MEDS: METHYLPREDNISOLONE 125 MG INJ IV SCH ×3 (02:42→12:00)
[2018-07-09 05:03] LABS: Absolute Lymphocytes (CBC) 0.4 K/uL (0.7-4.9); Absolute Monocytes 0.1 K/uL (0.1-1.3); Absolute Neutrophil 7.6 K/uL (1.8-8.0); Basophils % 0.1 % (0-1.3); MCV 94.3 fL (80-100); RBC Red Blood Cell Count 3.28 M/uL (3.86-4.86)
[2018-07-09 05:18] LABS: Bilirubin Total 0.3 mg/dL (0.2-1.0); Magnesium 2.4 mg/dL (1.8-2.4); Phosphorus 2.4 mg/dL (2.5-4.9); Potassium 3.6 mmol/L (3.5-5.1)
[2018-07-09 05:32] LABS: Arterial Blood Carboxyhemoglob 0.4 % (0-1.5); Blood Gas Oxyhemoglobin 92.8 % (94-97); Blood O2 Saturation 94.8 % (92-98.5)
[2018-07-09 05:50] LABS: Urine Appearance CLEAR; Urine Color YELLOW
[2018-07-09 05:51] LABS: Urine Bilirubin NEGATIVE (NEG); Urine Blood NEGATIVE (NEG); Urine Glucose NEGATIVE (NEG); Urine Microscopic Reflex ORDER UMIC; Urine Protein NEGATIVE (NEG); Urine Specific Gravity 1.015 (1.005-1.030); Urine Urobilinogen 0.2 mg/dL (0.2-1.0); Urine pH 7.5 (5.0-7.0)
[2018-07-09 06:03] LABS: Urine Bacteria <20 /HPF (<20); Urine Culture Reflex Order REFLEXED; Urine RBC NONE SEEN /HPF (NONE SEEN)
[2018-07-09 06:19] LABS: Blood Morphology Comment NOT SEEN (NOT SEEN); Platelet Estimate ADEQ
--- NOTE | 2018-07-09 07:40 | EKG ---
Test Date: 2018-07-08 Test Time: 16:12:00 Eeler: MEASUREMENT RESULTS: Intervals: Rate: 69 VA: 202 QRSD: 90 QT: 466 QTc: 499 [place]: P: 78 VA: 202 QRS: 40 T: 64 INTERPRETIVE STATEMENTS: Normal sinus rhythm Cannot rule out Anterior infarct, age undetermined Abnormal ECG Compared to ECG 07/08/2018 16:09:32 First degree AV block no longer present Myocardial infarct finding still present Electronically Signed On 07-09-18 07:39:03 ELECTRIC POWER LINE EXAMINER by Gustavo Shook
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
[2018-07-09] MEDS: TIOTROPIUM BROMIDE IN SCH (09:00)
[2018-07-09] MEDS ORDERED: ENOXAPARIN 40 MG/0.4 ML SQ SCH (09:00)
[2018-07-09] MEDS: HOME MED 1 EA UNK (Ipratropium/Albuterol Sulfate [Iprat-Albut 0.5-3(2.5) Mg/3 Ml] 1 INH) IH SCH ×3 (09:00→20:20)
[2018-07-09] MEDS ORDERED: POTASSIUM 25 MEQ EFFERV TAB PO SCH (09:00)
[2018-07-09] MEDS: AMLODIPINE 5 MG TAB PO SCH ×3 (09:00→17:34)
[2018-07-09] MEDS ORDERED: POTASSIUM PHOS IN 0.9 % NACL 15 MMOL/250 ML BAG IV ONE (09:00)
[2018-07-09] MEDS ORDERED: CEFTRIAXONE 1 GM/NS 50 ML 1 GM/50 ML BAG IV SCH (09:00)
[2018-07-09] MEDS: OXYBUTYNIN CHLORIDE 5 MG TAB PO SCH ×3 (09:00→20:18)
[2018-07-09] MEDS: PANTOPRAZOLE 40MG TABLET PO SCH (09:05)
[2018-07-09] MEDS: RIVAROXABAN 20 MG TABLET PO SCH (09:05)
[2018-07-09] MEDS: CEFTRIAXONE/SWI 1gm 1 GM/10 ML SYR IV SCH ×2 (09:05→20:18)
[2018-07-09] MEDS: FERROUS SULFATE 325 MG TAB PO SCH (09:06)
[2018-07-09] MEDS: MULTIVITAMIN TAB PO SCH (09:06)
[2018-07-09] MEDS: CITALOPRAM 10 MG TABLET PO SCH (09:06)
[2018-07-09] MEDS: FUROSEMIDE 20 MG TABLET PO SCH ×2 (09:06→20:18)
[2018-07-09] MEDS: DILTIAZEM HCL 120 MG SR CAP PO SCH (09:07)
[2018-07-09] MEDS: LORATADINE 10 MG TAB PO SCH (09:07)
[2018-07-09] MEDS: ACETAMINOPHEN 325 MG TABLET PO SCH (09:07)
[2018-07-09] MEDS: AMIODARONE HCL 200 MG TAB PO SCH (09:08)
[2018-07-09] MEDS ORDERED: ALBUTEROL 2.5 MG/3 ML NEB SOL NEB PRN (12:16)
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
[2018-07-09] MEDS: METOPROLOL TAR 50 MG TAB PO SCH ×2 (13:48→20:18)
--- NOTE | 2018-07-09 19:28 | PN ---
Date of Progress Note: 07/09/2018 Subjective: The patient seen and examined. Chart reviewed and case discussed with RN and Dr. Leydi chawla. The patient states she is still having significant bout of shortness of breath and some cough. Code Status: Full. Medications: List reviewed. Physical Examination: Vital Signs: Temperature 98.7, heart rate 81, blood pressure 145/64, respirations 22, O2 95% on 2 L via nasal cannula. General: Awake, alert, oriented x3. Elderly female in acute respiratory distress. CV: S1, S2. Regular rate and rhythm. Peripheral pulses present. Respiratory: The patient is tachypneic. No use of accessory muscles is present. Diminished breath sounds. Mild wheezing heard. Gastrointestinal: Abdomen is soft, nontender, nondistended. Positive bowel sounds. No guarding or rigidity. Extremities: No clubbing, cyanosis, or edema. Neurologic: Nonfocal. Laboratory Data: Sodium 139, potassium 3.6, chloride 104, CO2 29, BUN 15, creatinine 0.8, glucose 12 8, calcium 8.5, phosphorus 2.4, magnesium 2.4, albumin 3. ABG; pH 7.42, pCO2 46.5, PO2 82, bicarb 29 .7. WBC 8.1, hemoglobin and hematocrit 10.5 and 31, platelets 222, neutrophils 94%. Chest x-ray, pe rsonally reviewed, shows extensive chronic interstitial lung disease is present and could mask early edema or infiltrate. No mass, consolidation, or significant failure finding. Assessment: An 83-year-old female with: 1.Acute exacerbation of chronic obstructive pulmonary disease. Continue nebulizer treatments and st eroids. Appreciate Dr. Delatorre's input. Continue supplemental oxygenation. 2.History of atrial fibrillation, paroxysmal. We will continue rate control. The patient is on Xar elto. 3.Generalized weakness. We will obtain PT evaluation. 4.Essential hypertension. Resume home medications as appropriate. 5.Hypophosphatemia. We will replace and monitor. Plan: GI and DVT prophylaxis addressed. The patient is already on Xarelto. Continue with current t reatment likely discharge in the next 24 to 48 hours depending on clinical response. SA/MODL Voice ID: [id number] Report ID: [id number]
[2018-07-09] MEDS: predniSONE 20 MG TAB PO SCH (20:18)
[2018-07-09] MEDS: MELATONIN 5 MG TABLET PO SCH (20:18)
[2018-07-09] MEDS: FLUTICASONE IH SCH (20:19)
[2018-07-09] MEDS: VILANTEROL IH SCH (20:19)
[2018-07-10] MEDS: IPRATROPIUM BROM 0.5MG/2.5ML NEB SCH ×3 (01:56→14:00)
[2018-07-10 05:29] LABS: Phosphorus 2.9 mg/dL (2.5-4.9); Potassium 3.9 mmol/L (3.5-5.1)
[2018-07-10] MEDS ORDERED: POTASSIUM 25 MEQ EFFERV TAB PO ONE (05:40)
[2018-07-10] MEDS: RIVAROXABAN 20 MG TABLET PO SCH (09:00)
[2018-07-10] MEDS: HOME MED 1 EA UNK (Ipratropium/Albuterol Sulfate [Iprat-Albut 0.5-3(2.5) Mg/3 Ml] 1 INH) IH SCH ×3 (09:00→20:40)
[2018-07-10] MEDS: TIOTROPIUM BROMIDE IN SCH (09:00)
[2018-07-10] MEDS: CEFTRIAXONE/SWI 1gm 1 GM/10 ML SYR IV SCH (09:25)
[2018-07-10] MEDS: ACETAMINOPHEN 325 MG TABLET PO SCH ×2 (09:26→20:38)
[2018-07-10] MEDS: FERROUS SULFATE 325 MG TAB PO SCH (09:26)
[2018-07-10] MEDS: OXYBUTYNIN CHLORIDE 5 MG TAB PO SCH ×2 (09:26→20:39)
[2018-07-10] MEDS: AMLODIPINE 5 MG TAB PO SCH (09:26)
[2018-07-10] MEDS: MULTIVITAMIN TAB PO SCH (09:26)
[2018-07-10] MEDS: FUROSEMIDE 20 MG TABLET PO SCH ×2 (09:26→20:37)
[2018-07-10] MEDS: METOPROLOL TAR 50 MG TAB PO SCH ×2 (09:26→20:39)
[2018-07-10] MEDS: predniSONE 20 MG TAB PO SCH ×2 (09:27→20:38)
[2018-07-10] MEDS: AMIODARONE HCL 200 MG TAB PO SCH (09:27)
[2018-07-10] MEDS: LORATADINE 10 MG TAB PO SCH (09:27)
[2018-07-10] MEDS: CITALOPRAM 10 MG TABLET PO SCH (09:27)
[2018-07-10] MEDS: PANTOPRAZOLE 40MG TABLET PO SCH (09:27)
[2018-07-10] MEDS: DILTIAZEM HCL 120 MG SR CAP PO SCH (09:27)
[2018-07-10] MEDS ORDERED: IPRATROPIUM BROM 0.5MG/2.5ML NEB PRN (15:00)
[2018-07-10] MEDS ORDERED: ALBUTEROL 2.5 MG/3 ML NEB SOL NEB PRN (15:00)
[2018-07-10] MEDS: RIVAROXABAN 15 MG TABLET PO SCH (20:37)
[2018-07-10] MEDS: MELATONIN 5 MG TABLET PO SCH (20:38)
[2018-07-10] MEDS: FLUTICASONE IH SCH (20:40)
[2018-07-10] MEDS: VILANTEROL IH SCH (20:40)
--- NOTE | 2018-07-10 21:55 | P.PN ---
Subjective Date of Service: 07/10/18 Chief Complaint: Shortness of breath Subjective: No new changes, No C/O voiced, Improving Patient seen and examined at bedside. No family at bedside. Chart reviewed and case discussed with nursing staff. Reports improved breathing, on 2 L oxygen, which is patient's home oxygen Review of Systems As noted Physical Examination - Vital Signs Temperature: 98.9 F Blood Pressure: 134/64 Pulse: 53 Respirations: 20 Pulse Ox (%): 94 - Physical Exam General: Alert, In no apparent distress, Oriented x3 HEENT: Atraumatic, PERRLA, EOMI Neck: Supple, JVD not distended Respiratory: Normal air movement, Other (Mild wheezing, no use of accesory muscles. ) Cardiovascular: Regular rate/rhythm, Normal S1 S2 Gastrointestinal: Normal bowel sounds, No tenderness Musculoskeletal: No tenderness Integumentary: No rashes Neurological: Normal speech, Normal tone, Normal affect Lymphatics: No axilla or inguinal lymphadenopathy - Studies Microbiology Data (last 24 hrs): 07/08/18 16:00 Throat Culture & Sensitivity - Final Assessment And Plan - Plan An 83-year-old female with: 1. Acute exacerbation of chronic obstructive pulmonary disease. Continue nebulizer treatments and steroids. Appreciate Dr. Delatorre's input. Continue supplemental oxygenation. 2. History of atrial fibrillation, paroxysmal. We will continue rate control. The patient is on Xarelto. 3. Generalized weakness. We will obtain PT evaluation. 4. Essential hypertension. Resume home medications as appropriate. 5. Hypophosphatemia. We will replace and monitor. Plan: GI and DVT prophylaxis addressed. The patient is already on Xarelto. Continue with current treatment likely discharge in the next 24 hours depending on clinical response.
[2018-07-11 05:44] LABS: Potassium 3.9 mmol/L (3.5-5.1)
[2018-07-11] MEDS ORDERED: POTASSIUM CL SA 10 MEQ TAB PO ONE (07:30)
--- NOTE | 2018-07-11 07:46 | P.PN ---
Subjective Date of Service: 07/11/18 Chief Complaint: Shortness of breath Subjective: Improving (Patient is doing better he is coughing up some phlegm wants to go home) Review of Systems General: Weakness Respiratory: Cough, Shortness of Breath Physical Examination - Vital Signs Temperature: 97.9 F Blood Pressure: 128/59 Pulse: 59 Respirations: 18 Pulse Ox (%): 94 - Physical Exam General: Alert, Cooperative Respiratory: Clear to auscultation bilaterally Cardiovascular: No edema, Normal S1 S2 - Studies Microbiology Data (last 24 hrs): 07/08/18 16:00 Throat Culture & Sensitivity - Final Assessment & Plan - Problems (Diagnosis) (1) Acute exacerbation of chronic obstructive pulmonary disease (COPD) Onset Date: 07/09/18 Current Visit: Yes Status: Acute Plan: Patient admitted with COPD exacerbation doing well cultures all negative cultures all negative patient is feeling better discharged home on prednisone 10 mg twice a day she does have Breo and Spiriva at home discharge on prednisone 10 mg twice a day and cefuroxime follow up with me in 2 weeks patient has oxygen at home
[2018-07-11] MEDS: HOME MED 1 EA UNK (Ipratropium/Albuterol Sulfate [Iprat-Albut 0.5-3(2.5) Mg/3 Ml] 1 INH) IH SCH ×2 (09:00→14:00)
[2018-07-11] MEDS: TIOTROPIUM BROMIDE IN SCH (09:00)
[2018-07-11] MEDS: OXYBUTYNIN CHLORIDE 5 MG TAB PO SCH (09:00)
[2018-07-11] MEDS: predniSONE 20 MG TAB PO SCH (09:04)
[2018-07-11] MEDS: METOPROLOL TAR 50 MG TAB PO SCH (09:04)
[2018-07-11] MEDS: AMLODIPINE 5 MG TAB PO SCH (09:05)
[2018-07-11] MEDS: CITALOPRAM 10 MG TABLET PO SCH (09:06)
[2018-07-11] MEDS: DILTIAZEM HCL 120 MG SR CAP PO SCH (09:06)
[2018-07-11] MEDS: AMIODARONE HCL 200 MG TAB PO SCH (09:06)
[2018-07-11] MEDS: FERROUS SULFATE 325 MG TAB PO SCH (09:07)
[2018-07-11] MEDS: MULTIVITAMIN TAB PO SCH (09:07)
[2018-07-11] MEDS: FUROSEMIDE 20 MG TABLET PO SCH (09:07)
[2018-07-11] MEDS: LORATADINE 10 MG TAB PO SCH (09:07)
[2018-07-11] MEDS: PANTOPRAZOLE 40MG TABLET PO SCH (09:07)
[2018-07-11 16:44] VITALS: BP 133/61; TEMP 98.9
[2018-07-11] MEDS: RIVAROXABAN 15 MG TABLET PO SCH (16:55)
[2018-07-11 17:33] VITALS: O2SAT 94
--- NOTE | 2018-07-19 11:05 | P.DS ---
Admission Date: 07/08/18 Discharge Date: 07/11/18 Disposition: DC HOME/HOME HEALTH CARE Discharge Condition: GOOD Reason for Admission: Shortness of breath Consultations: Dr. Delatorre, Pulmonology Brief History of Present Illness: Patient is an 83-year-old female came into the hospital with difficulty breathing. Patient has a history of COPD and she uses 2 L of oxygen at home. Over the last 24 hr her respiratory status has worsened so she came into the emergency room for evaluation. In the ER she was wheezing diffusely and she was started on nebs. She was not feeling much better so they admitted her for observation. On the floor she is feeling a little bit better. She says her respiratory status has gradually worsened over the last few years. She did have an echocardiogram which also showed moderate pulmonary hypertension. Along with her COPD and possible progression of her pulmonary hypertension her respiratory status is probably declined over the last couple of years. Will go ahead and Consult Pulmonary for further evaluation. She is feeling better and is hopeful that she can go home in the next 24-48 hrs. Hospital Course: Acute exacerbation of chronic obstructive pulmonary disease. Pulmonary consulted; Given IV steroids and nebulizer treatments. Patient's symptoms improved with the interventions. At the time of discharg, her symptoms had resolved and she was back on her baseline of 2L oxygen. She otherwise remained stable throughout the stay. She was instructed to follow up with her PCP and water resources program director upon discharge. She was discharged on PO cefuroxime and PO steroids. Vital Signs/Physical Exam: Temp Pulse Resp BP Pulse Ox 98.9 F 53 16 133/61 94 07/11/18 16:00 07/11/18 16:00 07/11/18 16:00 07/11/18 16:00 07/11/18 16:00 General: Alert, In no apparent distress HEENT: Atraumatic, PERRLA, EOMI Neck: Supple, JVD not distended Respiratory: Clear to auscultation bilaterally, Normal air movement Cardiovascular: Regular rate/rhythm, Normal S1 S2 Gastrointestinal: Normal bowel sounds, No tenderness Musculoskeletal: No tenderness Integumentary: No rashes Neurological: Normal speech, Normal tone, Normal affect Lymphatics: No axilla or inguinal lymphadenopathy Laboratory Data at Discharge: WBC 8.1 K/uL (4.3-10.9) 07/09/18 03:56 Hgb 10.5 g/dL (12.0-15.0) L 07/09/18 03:56 Hct 31.0 % (36.0-45.0) L 07/09/18 03:56 Plt Count 222 K/uL (152-406) 07/09/18 03:56 PT 14.9 SECONDS (9.5-12.5) H 07/08/18 16:00 INR 1.26 07/08/18 16:00 Sodium 140 mmol/L (136-145) 07/11/18 04:54 Potassium 3.9 mmol/L (3.5-5.1) 07/11/18 04:54 BUN 17 mg/dL (7-18) 07/11/18 04:54 Creatinine 0.70 mg/dL (0.55-1.3) 07/11/18 04:54 Glucose 120 mg/dL (74-106) H 07/11/18 04:54 Phosphorus 2.9 mg/dL (2.5-4.9) 07/10/18 04:18 Magnesium 2.4 mg/dL (1.8-2.4) 07/09/18 03:56 Total Bilirubin 0.3 mg/dL (0.2-1.0) 07/09/18 03:56 AST 14 U/L (15-37) L 07/09/18 03:56 ALT 16 U/L (12-78) 07/09/18 03:56 Alkaline Phosphatase 85 U/L (45-117) 07/09/18 03:56 Triglycerides 34 mg/dL (<150) 07/09/18 03:56 Cholesterol 139 mg/dL (<200) 07/09/18 03:56 HDL Cholesterol 67 mg/dL (40-60) H 07/09/18 03:56 Cholesterol/HDL Ratio 2.07 07/09/18 03:56 Home Medications: Fluticasone/Vilanterol [Breo Ellipta 100-25 Mcg INH] 1 sprays IH BEDTIME Furosemide 40 mg PO BID 10/14/16 Ipratropium/Albuterol Sulfate [Iprat-Albut 0.5-3(2.5) mg/3 ml] 1 inh IH TID 05/23 Acetaminophen with Codeine [Acetaminophen-Cod #3 Tablet] 0.5 tab PO QID Ferrous Sulfate [Iron] 325 mg PO TID 03/16/17 Tiotropium [place] [Spiriva Respimat] 2 inh IN DAILY 03/16/17 Amiodarone HCl [Pacerone] 200 mg PO DAILY 07/25/17 Citalopram Hydrobromide [Celexa] 20 mg PO DAILY 08/03/17 Loratadine [Claritin*] 10 mg PO BEDTIME 08/03/17 Ascorbic Acid [Vitamin C*] 500 mg PO DAILY 07/09/18 Biotin 5,000 mcg PO DAILY 07/09/18 Calcium Carbonate/Vitamin D3 [Calcium 600 with Vit D Chew Tb] 2 tab PO DAILY 10/22 Cranberry Conc/Ascorbic Acid [Cranberry 12,600 mg Softgel] 25,000 mg PO DAILY Lactobacillus Acidophilus [Probiotic Acidophilus] 1 tab PO DAILY 07/09/18 [place]-3/Dha/Epa/Fish Oil [Fish Oil 1,000 mg Softgel] 1 each PO DAILY 07/09/18 Pantoprazole [Protonix Tab*] 40 mg PO DAILY 07/09/18 Potassium Chloride [Klor-Con 8] 1 tab PO BID 07/09/18 Rivaroxaban [Xarelto*] 15 mg PO DAILY 07/09/18 Sennosides/Docusate Sodium [Docusate Sodium-Sennosides Tab] 1 tab PO DAILY PRN 07/09/18 Tamsulosin [Flomax*] 0.4 mg PO DAILY 07/09/18 Cefuroxime Axetil [Cefuroxime] 500 mg PO BID #10 tab 07/11/18 predniSONE [Deltasone*] 10 mg PO BID #30 tab 07/11/18 New Medications: Cefuroxime Axetil [Cefuroxime] 500 mg PO BID #10 tab predniSONE [Deltasone*] 10 mg PO BID #30 tab Patient Discharge Instructions: Please follow up with your primary care physician in 1 week. Please follow up with pulmonology in [address] Delatorre has been provided to you. Diet: AHA Activity: Ad asim Followup: Art Delatorre MD [ACTIVE - CAN ADMIT] - Laurel Curiel DO [Primary Care Provider] - Physician Review: Patient Assessed, Agree with Above Assessment and Plan Time spent managing pt's care (in minutes): 55
== END 2018-07-11 17:03 | disposition home health service (06) ==
LOC: ER 15:27 → ERHOLD 19:28 → 4TH 21:31
PROVIDERS: ADMIT Hospitalist; ATTEND Hospitalist
DX: J44.1 Chronic obstructive pulmonary disease with (acute) exacerbation (principal); I27.20 Pulmonary hypertension, unspecified; R06.89 Other abnormalities of breathing; I48.0 Paroxysmal atrial fibrillation; E83.39 Other disorders of phosphorus metabolism; Z99.81 Dependence on supplemental oxygen; Z87.891 Personal history of nicotine dependence; Z91.041 Radiographic dye allergy status
CPT/HCPCS: 36415 ×3; 71045; 80048 ×3; 80053; 80061; 80076; 82805; 83605; 83735 ×2; 83880 ×2; 84100 ×2; 84145; 84484; 85025 ×2; 85610; 87040 ×2; 87070; 87081; 87086; 87088; 87804 ×2; 93005; 94640; 94760 ×7; 96365; 96375; 97163; 99285; G0378 ×2; J0696 ×4; J2930 ×3; J7030; 81003; 81015; J7512

== ENCOUNTER 2018-08-05 03:47 | Emergency (ER) | payer OTHER ==
--- OUTSIDE RECORDS SUMMARY | 2018-08-05 03:50 | XMS REPORT | Clinical Summary ---
:1935 Author Organization [facility] [employer] Address [address] [place] [address] Care Team Providers Name Role Phone Asked, No Pcp Primary Care Provider Unavailable Allergies Active Allergy Reactions Severity Noted Date Comments Levofloxacin Swelling High 06/22/2017 Tongue swelled up and pt states she "nearly choked". Medications Medication Sig Dispensed Refills Start Date End Date Status tiotropium (SPIRIVA) Place 1 capsule into 0 Active 18 mcg per inhaler and inhale inhalation capsule once daily. ipratropium-albutero Take 3 mL by 0 Active l (DUO-NEB) 0.5-2.5 nebulization 3 mg/mL nebulizer (three) times a day. fluticasone (FLOVENT Inhale 1 puff 2 0 Active HFA) 110 (two) times a day. mcg/actuation inhaler acetaminophen-codein Take 1 tablet by 0 Active e (TYLENOL WITH mouth 2 (two) times CODEINE #3) 300-30 a day. mg per tablet diclofenac Apply 1 application 0 Active (VOLTAREN) 1 % gel topically 4 (four) times a day as needed. cephalexin (KEFLEX) Take 500 mg by mouth 0 Active 500 MG capsule daily. rivaroxaban Take 20 mg by mouth 0 Active (XARELTO) 20 mg daily. tablet citalopram (CeleXA) Take 20 mg by mouth 0 Active 20 MG tablet every morning. esomeprazole Take 40 mg by mouth 0 Active (NexIUM) 40 MG daily before capsule breakfast. ferrous sulfate 325 Take 65 mg by mouth 0 Active (65 FE) MG tablet daily. calcium Take 1 tablet by 0 Active carbonate-vitamin D3 mouth 2 (two) times 500 mg-200 unit per a day with meals. tablet multivitamin Take 1 tablet by 0 Active (THERAGRAN) tablet mouth daily. vit B comp Take 1 tablet by 0 Active no.3-rvper-S-biotin mouth daily. (NEPHRO-FOSTER RX) 1-60-300 mg-mg-mcg tablet omega-3 acid ethyl Take 1,200 mg by 0 Active esters (LOVAZA) 1 mouth daily. gram capsule loratadine Take 10 mg by mouth 0 Active (CLARITIN) 10 mg daily. tablet Active Problems Problem Noted Date Atrial fibrillation [...] Health Maintenance Due Date Last Done Comments SHINGLES VACCINES (1 of 2) 1985 PNEUMOCOCCAL POLYSACCHARIDE VACCINE AGE 65 AND OVER 2000 PNEUMOCOCCAL-13 2000 INFLUENZA VACCINE 03/07/2018 Results Not on fileafter 08/04/2017 Insurance Payer Benefit Plan / Group Subscriber ID Type Phone Address MEDICARE MEDICARE PART A AND B xxxxxxxxxx Medicare [place], [place] TRIC[place] xxxxxxxxxxx Advance Directives Patient has advance care planning documents on file. For more information, please contact:Dario Garcia[address] [place] [phone]
--- OUTSIDE RECORDS SUMMARY | 2018-08-05 03:50 | XMS REPORT ---
[...] Dosage System Date Date Diltiazem HCl NDC 72178708862 120 MG Orally Active 1 capsule on ER Once a day an empty stomach in the morning Keflex ND 38045091290 250 MG Orally December 05May Active 1 capsule as directed 2017 Lasix ND 00062063062 40 MG Orally Sep 21, Active 1 tablet twice a day 2017 Spiriva ND 36820933357 18 MCG Active 1 capsule HandiHaler Inhalation Once a day Xarelto [facility] 36988587563 20 MG Orally Active 1 tablet with Once a day food Amiodarone HCl ND 72091228194 200 MG Orally Active 1 tablet Once a day Claritin ND 21201420649 10 MG Orally Active 1 tablet Once a day Prolia [facility] 17224684599 60 MG/ML Active not defined Subcutaneous Breo Ellipta [facility] 06247737826 100-25 MCG/INH Active 1 puff Inhalation Once a day Ventolin HFA [facility] 63491051010 108 (90 Base) Active 2 puffs as MCG/ACT needed Inhalation every 6 hrs Clotrimazole [facility] 54949116232 1 % Externally Active 1 application Twice a day to affected area Ketoconazole ND 67568666362 2 % Externally Active 1 application Once a day to affected area Nexium ND 49724714019 40 MG Orally Active 1 capsule Once a day Celexa ND 58551204316 20 MG Orally Active 1 tablet Once a day Flomax ND 06791993386 0.4 MG Orally Rhett Active 1 capsule Once a day 2018 Estrace ND 37958065670 0.1 MG/GM November Active as directed Vaginal twice 2017 weekly Multivitamin ND 25943138132 - Orally Active not defined Adult Results No Known Results Summary Purpose eClinicalWorks Submission
--- OUTSIDE RECORDS SUMMARY | 2018-08-05 03:51 | XMS REPORT ---
:1935 Author Organization [employer] Care Team Providers Name Role Phone FrederikaAllie Provider Role Unavailable Allergies, Adverse Reactions, Alerts [...] End Status Dosage System Date Date Cephalexin [facility] 08924562259 250 MG Orally March 01Aug Active 1 capsule daily 2017 Diltiazem HCl [facility] 61634283646 120 MG Orally Active 1 capsule on ER Once a day an empty stomach in the morning Amiodarone HCl ND 82560659790 200 MG Orally Active 1 tablet Once a day Flomax ND 10037090180 0.4 MG Orally Aug Active 1 capsule Once a day 2018 Keflex [facility] 87946150190 250 MG Orally December 05May Active 1 capsule as directed 2017 Ketoconazole ND 47987819271 2 % Externally Active 1 application Once a day to affected area Breo Ellipta ND 20535366933 100-25 MCG/INH Active 1 puff Inhalation Once a day Nexium ND 59727477673 40MG Active TAKE 1 CAPSULE DAILY Prolia ND 76620806586 60 MG/ML Active not defined Subcutaneous Spiriva ND 02272752629 2.5 microgram January 15January Active 2 puffs Respimat Inhaled Once a 2017 Xarelto ND 09821301062 20 MG Orally Active 1 tablet with Once a day food Clotrimazole ND 99080289544 1 % Externally Active 1 application Twice a day to affected area Ventolin HFA ND 86253221544 108 (90 Base) Active 2 puffs as MCG/ACT needed Inhalation every 6 hrs Spiriva ND 04438534532 18 MCG Active 1 capsule HandiHaler Inhalation Once a day Pacerone ND 10230264799 200MG Active TAKE 1 TABLET DAILY Lasix ND 68961104298 40 MG Orally Active 1 tablet twice a day Celexa ND 35235899388 20 MG Orally Active 1 tablet Once a day Claritin [facility] 64556835572 10 MG Orally Active 1 tablet Once a day Potassium [facility] 07174153509 8 MEQ Orally January 22Jul Active 1 tablet with Chloride ER Twice a day 2017 Estrace ND 69190915258 0.1 MG/GM November Active as directed Vaginal twice 2017 weekly Multivitamin [facility] 27628909959 - Orally Active not defined Adult Results Name Result Date Reference Range Unit Abnormality Flag URINALYSIS AUTO W/O SCOPE (74686) ----LEONEL trace [id number] ----NIT pos [id number] ----PROTEIN neg [id number] ----pH 6.0 20180301 ----GLUCOSE neg [id number] ----KETONES neg [id number] ----SPECIFIC GRAVITY 1.015 [id number] ----BLO neg [id number] Summary Purpose eClinicalWorks Submission
--- OUTSIDE RECORDS SUMMARY | 2018-08-05 03:51 | XMS REPORT ---
[...] End Date Status Dosage System Date Potassium [facility] 24968916175 8 MEQ Orally January 22Jul 21, Active 1 tablet Chloride ER Twice a day 2017 2017 with food Results No Known Results Summary Purpose eClinicalWorks Submission
--- OUTSIDE RECORDS SUMMARY | 2018-08-05 03:51 | XMS REPORT ---
[...] End Status Dosage System Date Date Lasix [facility] 60496772274 40 MG Orally Active 1 tablet twice a day Potassium ND 84725463579 8 MEQ Orally January Active 1 tablet with Chloride ER Twice a day 18, , 2017 Spiriva [facility] 08271680860 2.5 microgram January Active 2 puffs Respimat Inhaled Once a , 2017 Keflex [facility] 99535810412 250 MG Orally December 05May Active 1 capsule as directed 2017 Breo Ellipta [facility] 01086998151 100-25 MCG/INH Active 1 puff Inhalation Once a day Diltiazem HCl ND 28434329355 120 MG Orally Active 1 capsule on ER Once a day an empty stomach in the morning Spiriva [facility] 92929886940 18 MCG Active 1 capsule HandiHaler Inhalation Once a day Pacerone [facility] 00389951062 200MG Active TAKE 1 TABLET DAILY Estrace [facility] 70974846515 0.1 MG/GM November Active as directed Vaginal twice 12, 2017 Amiodarone HCl [facility] 27128337688 200 MG Orally Active 1 tablet Once a day Celexa ND 63222449923 20 MG Orally Active 1 tablet Once a day Pantoprazole ND 80223777126 40 MG Orally Mar 15, Active 1 tablet Sodium Once a day 2017 Clotrimazole [facility] 05021683201 1 % Externally Active 1 application Twice a day to affected area Ketoconazole ND 94430860647 2 % Externally Active 1 application Once a day to affected area Prolia [facility] 55023704407 60 MG/ML Active not defined Subcutaneous Flomax ND 15594980502 0.4 MG Orally Aug Active 1 capsule Once a day 2018 Cephalexin ND 81465650147 250 MG Orally February Active 1 capsule daily 2017 Claritin ND 98217957433 10 MG Orally Active 1 tablet Once a day Nexium ND 84284177147 40MG Inactive TAKE 1 CAPSULE DAILY Ventolin HFA [facility] 85627736388 108 (90 Base) Active 2 puffs as MCG/ACT needed Inhalation every 6 hrs Multivitamin [facility] 77283035585 - Orally Active not defined Adult Xarelto [facility] 62986579737 20 MG Orally Active 1 tablet with Once a day food Results No Known Results Summary Purpose eClinicalWorks Submission
--- OUTSIDE RECORDS SUMMARY | 2018-08-05 03:51 | XMS REPORT ---
[...] End Date Status Dosage System Date Spiriva [facility] 39373752295 2.5 microgram January 15January 10, Active 2 puffs Respimat Inhaled Once a 20172018 Results No Known Results Summary Purpose [email or web address] Submission
--- OUTSIDE RECORDS SUMMARY | 2018-08-05 03:51 | XMS REPORT ---
[...] Start End Date Status Dosage Date Nexium [facility] 32762773789 40 MG Orally Once Active 1 capsule a day Results No Known Results Summary Purpose eClinicalWorks Submission
--- OUTSIDE RECORDS SUMMARY | 2018-08-05 03:52 | XMS REPORT ---
[...] End Status Dosage System Date Date Pacerone [facility] 56290734666 200MG Active TAKE 1 TABLET DAILY Lasix ND 85064155427 40 MG Orally Active 1 tablet twice a day Spiriva [facility] 81769207704 2.5 microgram January Active 2 puffs Respimat Inhaled Once a , , day 2017 2018 Potassium [facility] 60677431233 8 MEQ Orally January Active 1 tablet with Chloride ER Twice a day 18, , food 2017 2017 Ventolin HFA [facility] 63472239268 108 (90 Base) Active 2 puffs as MCG/ACT needed Inhalation every 6 hrs Celexa [facility] 74660256713 20 MG Orally Active 1 tablet Once a day Diltiazem HCl [facility] 24064288711 120 MG Orally Active 1 capsule on ER Once a day an empty stomach in the morning Clotrimazole [facility] 66563914758 1 % Externally Active 1 application Twice a day to affected area Nexium ND 41828011593 40MG Inactive TAKE 1 CAPSULE DAILY Cephalexin ND 61330264496 250 MG Orally February Active 1 capsule daily , 2017 Amiodarone HCl [facility] 09717840597 200 MG Orally Sept Active 1 tablet Once a day 2017 Claritin [facility] 95799392290 10 MG Orally Active 1 tablet Once a day Amiodarone HCl [facility] 41572271711 200 MG Orally Active 1 tablet Once a day Furosemide ND 32520905858 40 MG Active TAKE 1 TABLET TWICE A DAY Breo Ellipta [facility] 55268735977 100-25 MCG/INH Active 1 puff Inhalation Once a day Spiriva [facility] 71237673847 18 MCG Active 1 capsule HandiHaler Inhalation Once a day Flomax [facility] 73024690543 0.4 MG Orally Aug Active 1 capsule Once a day 2018 Keflex ND 43473370803 250 MG Orally December 05May Active 1 capsule as directed 2017 Ketoconazole [facility] 86251908244 2 % Externally Active 1 application Once a day to affected area Estrace ND 66448793119 0.1 MG/GM Active as directed Vaginal twice weekly Xarelto [facility] 75754447101 20 MG Orally Active 1 tablet with Once a day food Pantoprazole [facility] 52572436705 40 MG Orally Active 1 tablet Sodium Once a day Multivitamin [facility] 49389956665 - Orally Active not defined Adult Prolia [facility] 53914879910 60 MG/ML Active not defined Subcutaneous Results No Known Results Summary Purpose eClinicalWorks Submission
[2018-08-05] MEDS ORDERED: METHYLPREDNISOLONE 125 MG INJ ONE (04:26)
[2018-08-05] MEDS ORDERED: ALBUTEROL 2.5 MG/3 ML NEB SOL ONE (04:27)
[2018-08-05] MEDS ORDERED: IPRATROPIUM BROM 0.5MG/2.5ML ONE (04:27)
[2018-08-05] MEDS ORDERED: NA CHLORIDE 0.9% 1,000 ML ONE (04:27)
[2018-08-05 04:28] LABS: Absolute Lymphocytes (CBC) 1.6 K/uL (0.7-4.9); Absolute Monocytes 0.5 K/uL (0.1-1.3); Absolute Neutrophil 6.5 K/uL (1.8-8.0); Basophils % 0.7 % (0-1.3); Eosinophils % 1.7 % (0-4.4); Hematocrit 30.5 % (36.0-45.0); Lymphocytes % 18.5 % (15.3-44.8); MPV 8.2 fL (7.6-11.3); Monocytes % 6.1 % (3.3-12.3); RBC Red Blood Cell Count 3.28 M/uL (3.86-4.86)
[2018-08-05 04:34] LABS: Protime INR 1.99
[2018-08-05 04:35] LABS: Arterial Blood Carboxyhemoglob 0.9 % (0-1.5); Blood O2 Saturation 94.3 % (92-98.5)
[2018-08-05 04:48] LABS: ALT/SGPT 15 U/L (12-78); AST/SGOT 10 U/L (15-37); Albumin 2.8 g/dL (3.4-5.0); Alkaline Phosphatase 83 U/L (45-117); BUN Blood Urea Nitrogen 13 mg/dL (7-18); Bicarbonate 34 mmol/L (21-32); Bilirubin Direct 0.1 mg/dL (0-0.2); Bilirubin Total 0.3 mg/dL (0.2-1.0); Glucose Level 95 mg/dL (74-106); Magnesium 2.4 mg/dL (1.8-2.4); NT PRO-BNP 286 pg/mL (<450); Potassium 3.5 mmol/L (3.5-5.1); Protein, Total 6.7 g/dL (6.4-8.2); Sodium Level 143 mmol/L (136-145); Troponin (Emerg Dept Use Only) < 0.02 ng/mL (0.0-0.045)
--- NOTE | 2018-08-05 06:26 | ER ---
Nurse's Notes [facility] Name: Jazmine Waggoner Age: 83 yrs Sex: Female : 1935 Arrival Date: 08/05/2018 Time: 03:50 Bed 5 Private MD: Diagnosis: Acute exacerbation COPD. Possible pneumonia Presentation: 08/05 03:51 Presenting complaint: EMS states: they were toned out for report of pt having shortness bb of breath on their arrival pt O2 sats were 88% on 2L NC. Transition of care: [facility]. Onset of symptoms was August 05, 2018. Risk Assessment: Do you want to hurt yourself or someone else? Patient reports no desire to harm self or others. Initial Sepsis Screen: Does the patient meet any 2 criteria? No. Patient's initial sepsis screen is negative. Does the patient have a suspected source of infection? No. Patient's initial sepsis screen is negative. Care prior to arrival: Medication(s) given: Albuterol Neb x 1, IV initiated. 20 GA, in the right antecubital area, Glucose check: 107 Oxygen administered. via a nebulizer mask. 03:51 Method Of Arrival: EMS: [facility] bb 03:51 Acuity: PHI 3 bb Triage Assessment: 03:58 General: Appears in no apparent distress. Behavior is calm, cooperative. Pain: Denies ak1 pain. EENT: No signs and/or symptoms were reported regarding the EENT system. Neuro: No deficits noted. Cardiovascular: Rhythm is atrial fibrillation. Respiratory: Reports shortness of breath cough that is productive, since 2 days [employer] Airway is patent Respiratory effort is unlabored, Onset: The symptoms/episode began/occurred today, the patient has mild shortness of breath. GI: No signs and/or symptoms were reported involving the gastrointestinal system. : No signs and/or symptoms were reported regarding the genitourinary system. Derm: No signs and/or symptoms reported regarding the dermatologic system. Musculoskeletal: Reports pt report chronic hip pain, no new pain reported at this time. 03:58 Respiratory: Breath sounds are clear bilaterally. ak1 Historical: - Allergies: 03:55 CONTRAST DYE; bb 03:55 Levaquin; bb 03:55 Spiriva with HandiHaler; bb - Home Meds: 03:55 acetaminophen 325 mg Oral tab 2 tabs every 6 hours for Arthritic Pain, Fever [Active]; bb acetaminophen 650 mg Rectal supp 1 suppository every 6 hours for Arthritic Pain, Fever [Active]; ascorbic acid (vitamin C) 1 tab daily [Active]; Atrovent 0.03 % Nasal spry [Active]; Breo Ellipta 100-25 mcg/dose inhalation dsdv 1 puff once daily [Active]; calcium tablet 1 tab twice a day [Active]; citalopram 20 mg tab once daily [Active]; diltiazem HCl 120 mg Oral cpER 2 caps once daily [Active]; docusate sodium 100 mg Oral cap 1 cap once daily [Active]; Fish Oil 1,000 mg Oral cap daily [Active]; fluticasone furoate-vilanterol 100-25mcg 2 spray daily [Active]; folic acid 1 mg Oral tab 1 tab once daily [Active]; furosemide 20 mg Oral tab 1 tab 2 times per day [Active]; Kassandra-Lanta 200-200-20 mg/5 mL Oral susp 30 mL every 4 hours [Active]; Kassandra-Tussin 100 mg/5 mL Oral liqd 5 mL every 6 hours [Active]; ipratropium bromide inhalation [Active]; ipratropium-albuterol inhalation Inhl [Active]; melatonin 3 mg Oral tab nightly [Active]; Milk of Magnesia 400 mg/5 mL Oral susp 30 mL once daily for constipation [Active]; Mucinex 600 mg Oral Ta12 every 12 hours [Active]; Nexium 40 mg Oral cpDR 1 cap once daily [Active]; Prolia 60 mg/mL subcutaneous syrg 1 mL every 6 mo [Active]; Pylera 140-125-125 mg Oral cap 4 times per day [Active]; sotalol 80 mg Oral tab 1 tab 2 times per day [Active]; Spiriva Respimat 2.5 mcg/actuation inhalation mist 2 puffs once daily [Active]; vitamin E 400 unit Oral cap daily [Active]; Xarelto 20 mg Oral tab 1 tab once daily [Active]; - PMHx: 03:55 Atrial Fib; COPD; GERD; Hypertension; bb - PSHx: 03:55 Tonsillectomy; Hysterectomy; bladder; Left wrist; bb - Immunization history:: Adult Immunizations up to date, Pneumococcal vaccine is up to date, Flu vaccine is up to date. - Social history:: Smoking status: Patient/guardian denies using tobacco, but has a distant history of tobacco abuse, Patient uses alcohol, occasionally. - Ebola Screening: : No symptoms or risks identified at this time. Screenin:58 Abuse screen: Denies threats or abuse. Denies injuries from another. Nutritional ak1 screening: No deficits noted. Tuberculosis screening: No symptoms or risk factors identified. Fall Risk None identified. Assessment: 04:00 Reassessment: Patient appears in no apparent distress at this time. No changes from ak1 previously documented assessment. see triage assessment. Cardiovascular: Rhythm is pt with hx AFIB. 04:24 Reassessment: RT at bedside for ABG. ak1 06:39 Reassessment: Patient appears in no apparent distress at this time. No changes from ak1 previously documented assessment. Patient and/or family updated on plan of care and expected duration. Pain level reassessed. Patient is alert, oriented x 3, equal unlabored respirations, skin warm/dry/pink. Patient states feeling better. Patient states symptoms have improved. Stefan at [employer] [facility] vest front presser was contacted about transportation for pt. pt stated her daughter is out of town. Stefan is contacting his boss to find out about transportation. . Vital Signs: 03:55 BP 124 / 71; Pulse 88; Resp 22 S; Temp 98.2(O); Pulse Ox 94% on R/A; Weight 74.84 kg bb (R); Height 5 ft. 4 in. (162.56 cm) (R); Pain 0/10; 04:38 BP 127 / 61; Pulse 84 MON; Resp 20; Pulse Ox 100% on 100% Nebulizer Mask; ak1 05:45 BP 140 / 54; Pulse 89; Resp 14; Temp 98.2; Pulse Ox 98% on 2 lpm NC; ak1 06:01 Pulse Ox 94% on 2 lpm NC; ak1 03:55 Body Mass Index 28.32 (74.84 kg, 162.56 cm) bb 04:38 A fib ak1 ED Course: 03:50 Patient arrived in ED. bb 03:50 Nirmal Bashir MD is Attending Physician. pkl 03:52 Triage completed. bb 03:55 Arm band placed on. bb 03:56 EKG done, by ED staff, reviewed by Nirmal Bashir MD. Maintain EMS IV. Dressing intact. Good ak1 blood return noted. Site clean \T\ dry. Gauge \T\ site: 20g right AC. 03:58 Patient has correct armband on for positive identification. Placed in gown. Bed in low ak1 position. Call light in reach. Side rails up X2. monitoring and evaluation advisor on. Pulse ox on. NIBP on. Door closed. Lights dimmed. Warm blanket given. 04:12 Initial lab(s) drawn, by me, sent to lab. First set of blood cultures drawn by me, ak1 Second set of blood cultures drawn by me, X-ray(s) taken. 04:21 Lou Salinas, RN is Primary Nurse. ak1 04:22 XRAY Chest (1 view) Sent. ak1 04:23 X-ray completed. Portable x-ray completed in exam room. Patient tolerated procedure sg4 well. 04:23 Inserted saline lock: 22 gauge in right forearm, using aseptic technique. Blood ak1 collected. 04:28 XRAY Chest (1 view) In Process Unspecified. EDMS 06:39 No provider procedures requiring assistance completed. ak1 07:26 IV discontinued, intact, bleeding controlled, No redness/swelling at site. Pressure ss dressing applied. Administered Medications: 04:21 Drug: Albuterol - atroVENT (3:1) (2.5 mg - 0.5 mg) 3 ml Route: Nebulizer; ak1 04:50 Follow up: Response: No adverse reaction ak1 04:21 Drug: NS 0.9% 1000 ml Route: IV; Rate: 100 ml/hr; Site: right forearm; ak1 07:26 Follow up: IV Status: Completed infusion ss 04:37 Drug: SOLU-Medrol 125 mg Route: IVP; Site: right forearm; ak1 06:43 Follow up: Response: No adverse reaction ak1 06:25 Drug: Rocephin - (cefTRIAXone) 1 grams Route: IVPB; Infused Over: 30 mins; Site: right lp1 forearm; 06:42 Follow up: Response: No adverse reaction ak1 06:43 Follow up: IV Status: Completed infusion ak1 06:25 Drug: Tussionex Pennkinetic ER 5 ml Route: PO; lp1 06:42 Follow up: Response: No adverse reaction ak1 Outcome: 06:25 Discharge ordered by . pkl 06:41 Condition: improved ak1 07:26 Discharged to home ambulatory. ss 07:26 Discharge instructions given to patient, Instructed on discharge instructions, follow up and referral plans. medication usage, Demonstrated understanding of instructions, follow-up care, medications, Prescriptions given X 4. 07:26 Patient left the ED. Signatures: Dispatcher [employer] EDNirmal Guy MD MD pkl Ballard, Brenda RN Bushra Amador RN RN ss Claudia Lira RN RN [email or web address] Lou Salinas RN RN ak1 Lay Garrett sg4 Corrections: (The following items were deleted from the chart) 04:36 03:55 Allergies: Wellbutrin; lester batista
--- NOTE | 2018-08-05 06:26 | EDPHYS ---
Physician Documentation [facility] Name: Jazmine Waggoner Age: 83 yrs Sex: Female : 1935 Arrival Date: 08/05/2018 Time: 03:50 Bed 5 Private MD: ED Physician Nirmal Bashir HPI: 08/05 04:13 This 83 yrs old Female presents to ER via EMS with complaints of Breathing pkl Difficulty, Productive Cough. 04:13 The patient has shortness of breath at rest. Onset: The symptoms/episode began/occurred pkl today, 3 day(s) ago, and became worse. The patient has experienced similar episodes in the past, several times. The patient has been recently been admitted at [facility], was discharged a couple of weeks ago, for similar complaints. Historical: - Allergies: 03:55 CONTRAST DYE; bb 03:55 Levaquin; bb 03:55 Spiriva with HandiHaler; bb - Home Meds: 03:55 acetaminophen 325 mg Oral tab 2 tabs every 6 hours for Arthritic Pain, Fever [Active]; bb acetaminophen 650 mg Rectal supp 1 suppository every 6 hours for Arthritic Pain, Fever [Active]; ascorbic acid (vitamin C) 1 tab daily [Active]; Atrovent 0.03 % Nasal spry [Active]; Breo Ellipta 100-25 mcg/dose inhalation dsdv 1 puff once daily [Active]; calcium tablet 1 tab twice a day [Active]; citalopram 20 mg tab once daily [Active]; diltiazem HCl 120 mg Oral cpER 2 caps once daily [Active]; docusate sodium 100 mg Oral cap 1 cap once daily [Active]; Fish Oil 1,000 mg Oral cap daily [Active]; fluticasone furoate-vilanterol 100-25mcg 2 spray daily [Active]; folic acid 1 mg Oral tab 1 tab once daily [Active]; furosemide 20 mg Oral tab 1 tab 2 times per day [Active]; Kassandra-Lanta 200-200-20 mg/5 mL Oral susp 30 mL every 4 hours [Active]; Kassandra-Tussin 100 mg/5 mL Oral liqd 5 mL every 6 hours [Active]; ipratropium bromide inhalation [Active]; ipratropium-albuterol inhalation Inhl [Active]; melatonin 3 mg Oral tab nightly [Active]; Milk of Magnesia 400 mg/5 mL Oral susp 30 mL once daily for constipation [Active]; Mucinex 600 mg Oral Ta12 every 12 hours [Active]; Nexium 40 mg Oral cpDR 1 cap once daily [Active]; Prolia 60 mg/mL subcutaneous syrg 1 mL every 6 mo [Active]; Pylera 140-125-125 mg Oral cap 4 times per day [Active]; sotalol 80 mg Oral tab 1 tab 2 times per day [Active]; Spiriva Respimat 2.5 mcg/actuation inhalation mist 2 puffs once daily [Active]; vitamin E 400 unit Oral cap daily [Active]; Xarelto 20 mg Oral tab 1 tab once daily [Active]; - PMHx: 03:55 Atrial Fib; COPD; GERD; Hypertension; bb - PSHx: 03:55 Tonsillectomy; Hysterectomy; bladder; Left wrist; bb - Immunization history:: Adult Immunizations up to date, Pneumococcal vaccine is up to date, Flu vaccine is up to date. - Social history:: Smoking status: Patient/guardian denies using tobacco, but has a distant history of tobacco abuse, Patient uses alcohol, occasionally. - Ebola Screening: : No symptoms or risks identified at this time. ROS: 04:13 Eyes: Negative for injury, pain, redness, and discharge, ENT: Negative for injury, pkl pain, and discharge, Neck: Negative for injury, pain, and swelling, Cardiovascular: Negative for chest pain, palpitations, and edema. 04:13 Respiratory: Positive for cough, with yellow sputum, shortness of breath, wheezing. 04:13 Abdomen/GI: Negative for abdominal pain, nausea, vomiting, and diarrhea. 04:13 Back: Negative for acute changes. 04:13 : Negative for urinary symptoms. 04:13 MS/extremity: Negative for acute changes. 04:13 Skin: Negative for rash. 04:13 Neuro: Negative for altered mental status. Exam: 04:13 Head/Face: Normocephalic, atraumatic. Eyes: Pupils equal round and reactive to light, pkl extra-ocular motions intact. Lids and lashes normal. Conjunctiva and sclera are non-icteric and not injected. Cornea within normal limits. Periorbital areas with no swelling, redness, or edema. ENT: Nares patent. No nasal discharge, no septal abnormalities noted. Tympanic membranes are normal and external auditory canals are clear. Oropharynx with no redness, swelling, or masses, exudates, or evidence of obstruction, uvula midline. Mucous membranes moist. Neck: Trachea midline, no thyromegaly or masses palpated, and no cervical lymphadenopathy. Supple, full range of motion without nuchal rigidity, or vertebral point tenderness. No Meningismus. Chest/axilla: Normal chest wall appearance and motion. Nontender with no deformity. No lesions are appreciated. Cardiovascular: Regular rate and rhythm with a normal S1 and S2. No gallops, murmurs, or rubs. Normal PMI, no JVD. No pulse deficits. 04:13 Respiratory: moderate respiratory distress is noted, Respirations: labored breathing, Breath sounds: bronchial sounds, that are moderate, are scattered, rhonchi, that are moderate, are scattered. 04:13 Abdomen/GI: Bowel sounds: normal, Palpation: abdomen is soft and non-tender, in all quadrants. 04:13 Back: Exam negative for acute changes. 04:13 : Exam negative for acute changes. 04:13 Musculoskeletal/extremity: Exam is negative for acute changes. 04:13 Skin: Exam negative for rash. 04:13 Neuro: Orientation: is normal, Mentation: appropriate for stated age, Cranial nerves: grossly normal, Motor: is normal. Vital Signs: 03:55 BP 124 / 71; Pulse 88; Resp 22 S; Temp 98.2(O); Pulse Ox 94% on R/A; Weight 74.84 kg bb (R); Height 5 ft. 4 in. (162.56 cm) (R); Pain 0/10; 04:38 BP 127 / 61; Pulse 84 MON; Resp 20; Pulse Ox 100% on 100% Nebulizer Mask; ak1 05:45 BP 140 / 54; Pulse 89; Resp 14; Temp 98.2; Pulse Ox 98% on 2 lpm NC; ak1 06:01 Pulse Ox 94% on 2 lpm NC; ak1 03:55 Body Mass Index 28.32 (74.84 kg, 162.56 cm) bb 04:38 A fib ak1 MDM: 03:50 Patient medically screened. pkl 06:24 Data reviewed: vital signs, nurses notes, lab test result(s), EKG, radiologic studies, pkl plain films. 08/05 04:10 Order name: Basic Metabolic Panel; Complete Time: 05:41 08/05 04:10 Order name: CBC with Diff; Complete Time: 04:44 08/05 04:10 Order name: LFT's; Complete Time: 05:41 08/05 04:10 Order name: Magnesium; Complete Time: 05:41 08/05 04:10 Order name: NT PRO-BNP; Complete Time: 05:41 08/05 04:10 Order name: PT-INR; Complete Time: 04:44 08/05 04:10 Order name: Troponin (emerg Dept Use Only); Complete Time: 05:41 08/05 04:10 Order name: XRAY Chest (1 view) 08/05 04:10 Order name: Blood Culture Adult (2) 08/05 04:10 Order name: ABG; Complete Time: 04:44 08/05 04:13 Order name: Lactate; Complete Time: 04:44 08/05 04:13 Order name: Procalcitonin; Complete Time: 05:08/05 04:10 Order name: EKG; Complete Time: 04:11 08/05 04:10 Order name: Cardiac monitoring; Complete Time: 04:08/05 04:10 Order name: EKG - Nurse/Tech; Complete Time: 04:08/05 04:10 Order name: IV Saline Lock; Complete Time: 04:08/05 04:10 Order name: Labs collected and sent; Complete Time: 04:08/05 04:10 Order name: O2 Per Protocol; Complete Time: 04:08/05 04:10 Order name: O2 Sat Monitoring; Complete Time: 04:22 bb Administered Medications: 04:21 Drug: Albuterol - atroVENT (3:1) (2.5 mg - 0.5 mg) 3 ml Route: Nebulizer; ak1 04:50 Follow up: Response: No adverse reaction ak1 04:21 Drug: NS 0.9% 1000 ml Route: IV; Rate: 100 ml/hr; Site: right forearm; ak1 07:26 Follow up: IV Status: Completed infusion ss 04:37 Drug: SOLU-Medrol 125 mg Route: IVP; Site: right forearm; ak1 06:43 Follow up: Response: No adverse reaction ak1 06:25 Drug: Rocephin - (cefTRIAXone) 1 grams Route: IVPB; Infused Over: 30 mins; Site: right lp1 forearm; 06:42 Follow up: Response: No adverse reaction ak1 06:43 Follow up: IV Status: Completed infusion ak1 06:25 Drug: Tussionex Pennkinetic ER 5 ml Route: PO; lp1 06:42 Follow up: Response: No adverse reaction ak1 Disposition: 08/05/18 06:25 Discharged to Home. Impression: Acute exacerbation COPD. Possible pneumonia. - Condition is Stable. - Prescriptions for Prednisone 20 mg Oral Tablet - take 1 tablet by ORAL route once daily for 5 days; 5 tablet. Albuterol Sulfate 2.5 mg /3 mL (0.083 %) Inhalation Solution for Nebulization - inhale 1 unit by NEBULIZATION route every 8 hours As needed; 1 box. Zithromax Z- Jono 250 mg Oral Tablet - take 1 tablet by ORAL route as directed for 5 days Day 1 - take two (2) tablets one time. Day 2, 3, 4 , 5 take one (1) tablet once daily.; 6 tablet. Guaifenesin AC 10- 100 mg/5 mL Oral Liquid - take 5 milliliter by ORAL route every 8 hours As needed; 60 milliliter. - Medication Reconciliation Form, Thank You Letter, Antibiotic Education, Prescription Opioid Use form. - Follow up: Private Physician; When: 2 - 3 days; Reason: Re-evaluation by your physician. - Problem is new. - Symptoms have improved. Signatures: Dispatcher [employer] EDPR Nirmal Bashir MD MD pkl Ballard, Brenda, RN RN Bushra Dillard, LG RN ss Claudia Lira, RN RN lp1 Lou Salinas, RN RN ak1 Corrections: (The following items were deleted from the chart) 04:36 03:55 Allergies: Wellbutrin; lester batista 07:26 06:25 08/05/2018 06:25 Discharged to Home. Impression: Acute exacerbation COPD. ss Possible pneumonia. Condition is Stable. Forms are Medication Reconciliation Form, Thank You Letter, Antibiotic Education, Prescription Opioid Use. Follow up: Private Physician; When: 2 - 3 days; Reason: Re-evaluation by your physician. Problem is new. Symptoms have improved. pkl
[2018-08-05] MEDS ORDERED: CEFTRIAXONE/SWI 1gm 1 GM/10 ML SYR ONE (06:30)
[2018-08-05] MEDS ORDERED: HYDROCODONE/CHLORPHEN 5 ML/OSYR ONE (06:30)
[2018-08-05 07:41] VITALS: TEMP 98.2
[2018-08-05 07:43] VITALS: BP 140/54
[2018-08-05 07:44] VITALS: O2SAT 94
--- NOTE | 2018-08-05 10:12 | EKG ---
Test Date: 2018-08-05 Test Time: 03:57:55 [employer]: JOHNNA MEASUREMENT RESULTS: Intervals: Rate: 80 MA: 198 QRSD: 84 QT: 422 QTc: 486 [place]: P: 66 MA: 198 QRS: -9 T: 56 INTERPRETIVE STATEMENTS: Normal sinus rhythm Normal ECG Compared to ECG 07/08/2018 16:12:00 Myocardial infarct finding no longer present Electronically Signed On 08-05-18 10:11:59 SET UP MECHANIC AUTOMATIC LINE by Gustavo Shook
--- NOTE | 2018-08-05 12:42 | RAD REPORT ---
EXAM DESCRIPTION: RAD - Chest Single View - 08/05/2018 4:29 am CLINICAL HISTORY: COUGH Chest pain. COMPARISON: Chest Single View dated 07/08/2018; Chest Single View dated 03/26/2018; Chest Single View dated 08/03/2017; Chest Single View dated 07/25/2017 FINDINGS: Portable technique limits examination quality. Emphysematous changes are present throughout the lungs. Small linear opacity in the left upper lobe m ay represent developing pneumonia. The heart is mildly prominent in size. No displaced fractures. IMPRESSION: COPD with possible small developing pneumonia in the left upper lobe.
== END 2018-08-05 07:26 | disposition home or self-care (01) ==
LOC: ER 03:47
DX: J44.1 Chronic obstructive pulmonary disease with (acute) exacerbation (principal); I48.91 Unspecified atrial fibrillation; I10 Essential (primary) hypertension; K21.9 Gastro-esophageal reflux disease without esophagitis; Z79.01 Long term (current) use of anticoagulants; Z79.899 Other long term (current) drug therapy; Z87.891 Personal history of nicotine dependence
CPT/HCPCS: 36415; 71045; 80048; 80076; 82805; 83605; 83735; 83880; 84145; 84484; 85025; 85610; 87040 ×2; 93005; 94640; 96361; 96365; 96375; 99285; J0696; J2930; J7030

== ENCOUNTER 2018-08-21 17:39 | Inpatient (IN) | payer OTHER ==
--- OUTSIDE RECORDS SUMMARY | 2018-08-21 17:42 | XMS REPORT ---
:1935 [facility] Address [address] [place] [address] Care Team Providers Name Role Phone Unavailable Unavailable Unavailable Problems This patient has no known problems. Allergies, Adverse Reactions, Alerts This patient has no known allergies or adverse reactions. Medications This patient has no known medications.
--- OUTSIDE RECORDS SUMMARY | 2018-08-21 17:42 | XMS REPORT ---
[...] Dosage System Date Date Diltiazem HCl NDC 74411075993 120 MG Orally Active 1 capsule on ER Once a day an empty stomach in the morning Keflex ND 87792753259 250 MG Orally December 05May Active 1 capsule as directed 2017 Lasix ND 82024052065 40 MG Orally Sep 21, Active 1 tablet twice a day 2017 Spiriva ND 65007055257 18 MCG Active 1 capsule HandiHaler Inhalation Once a day Xarelto [facility] 03300028541 20 MG Orally Active 1 tablet with Once a day food Amiodarone HCl ND 10555649577 200 MG Orally Active 1 tablet Once a day Claritin ND 96399680316 10 MG Orally Active 1 tablet Once a day Prolia [facility] 90365794054 60 MG/ML Active not defined Subcutaneous Breo Ellipta [facility] 21563775841 100-25 MCG/INH Active 1 puff Inhalation Once a day Ventolin HFA [facility] 39595154725 108 (90 Base) Active 2 puffs as MCG/ACT needed Inhalation every [address] [facility] 37370910830 1 % Externally Active 1 application Twice a day to affected area Ketoconazole ND 60005604095 2 % Externally Active 1 application Once a day to affected area Nexium ND 66380489958 40 MG Orally Active 1 capsule Once a day Celexa ND 17923629790 20 MG Orally Active 1 tablet Once a day Flomax ND 01246238321 0.4 MG Orally Rhett Active 1 capsule Once a day 2018 Estrace ND 56545365923 0.1 MG/GM November Active as directed Vaginal twice 2017 weekly Multivitamin ND 41990910108 - Orally Active not defined Adult Results No Known Results Summary Purpose eClinicalWorks Submission
--- OUTSIDE RECORDS SUMMARY | 2018-08-21 17:42 | XMS REPORT | Clinical Summary ---
:1935 Author Organization [facility] Address [address] [place] [address] Care Team Providers Name Role Phone Asked, [...] comp Take 1 tablet by 0 Active no.9-tomcm-G-biotin mouth daily. (NEPHRO-FOSTER RX) 1-60-300 mg-mg-mcg tablet [...] INFLUENZA VACCINE 03/07/2018 Results Not on fileafter 08/20/2017 Insurance Payer Benefit Plan / Group Subscriber ID Type Phone Address MEDICARE MEDICARE PART A AND B xxxxxxxxxx Medicare [place], [place] TRICARE [place] xxxxxxxxxxx Advance Directives Patient has advance care planning documents on file. For more information, please contact:Dario Garcia[address] [place] [address]
--- OUTSIDE RECORDS SUMMARY | 2018-08-21 17:43 | XMS REPORT ---
[...] End Status Dosage System Date Date Lasix [facility] 01080789033 40 MG Orally Active 1 tablet twice a day Potassium ND 54123768873 8 MEQ Orally January Active 1 tablet with Chloride ER Twice a day 18, , 2017 Spiriva [facility] 56762696300 2.5 microgram January Active 2 puffs Respimat Inhaled Once a , 2017 Keflex [facility] 88313231889 250 MG Orally December 05May Active 1 capsule as directed 2017 Breo Ellipta [facility] 78744289536 100-25 MCG/INH Active 1 puff Inhalation Once a day Diltiazem HCl ND 28335495864 120 MG Orally Active 1 capsule on ER Once a day an empty stomach in the morning Spiriva [facility] 66277591817 18 MCG Active 1 capsule HandiHaler Inhalation Once a day Pacerone [facility] 36038711803 200MG Active TAKE 1 TABLET DAILY Estrace [facility] 97585095113 0.1 MG/GM November Active as directed Vaginal twice 12, 2017 Amiodarone HCl [facility] 64067482084 200 MG Orally Active 1 tablet Once a day Celexa ND 34219689705 20 MG Orally Active 1 tablet Once a day Pantoprazole ND 51412705220 40 MG Orally Mar 15, Active 1 tablet Sodium Once a day 2017 Clotrimazole [facility] 69141754429 1 % Externally Active 1 application Twice a day to affected area Ketoconazole ND 86664135765 2 % Externally Active 1 application Once a day to affected area Prolia [facility] 01562589365 60 MG/ML Active not defined Subcutaneous Flomax ND 78557049922 0.4 MG Orally Aug Active 1 capsule Once a day 2018 Cephalexin ND 28891950098 250 MG Orally February Active 1 capsule daily 2017 Claritin ND 78520687083 10 MG Orally Active 1 tablet Once a day Nexium ND 82785683113 40MG Inactive TAKE 1 CAPSULE DAILY Ventolin HFA [facility] 27377332743 108 (90 Base) Active 2 puffs as MCG/ACT needed Inhalation every 6 hrs Multivitamin [facility] 57856902886 - Orally Active not defined Adult Xarelto [facility] 96252670217 20 MG Orally Active 1 tablet with Once a day food Results No Known Results Summary Purpose eClinicalWorks Submission
--- OUTSIDE RECORDS SUMMARY | 2018-08-21 17:43 | XMS REPORT ---
[...] Start End Date Status Dosage Date Nexium [facility] 07780878578 40 MG Orally Once Active 1 capsule a day Results No Known Results Summary Purpose eClinicalWorks Submission
--- OUTSIDE RECORDS SUMMARY | 2018-08-21 17:43 | XMS REPORT ---
[...] End Date Status Dosage System Date Potassium [facility] 14820601366 8 MEQ Orally January 22Jul 21, Active 1 tablet Chloride ER Twice a day 2017 2017 with food Results No Known Results Summary Purpose eClinicalWorks Submission
--- OUTSIDE RECORDS SUMMARY | 2018-08-21 17:43 | XMS REPORT ---
:1935 Author Organization eClinicalWorks Care Team Providers Name Role Phone RuthvenAllie Provider Role Unavailable Allergies, Adverse Reactions, Alerts [...] End Status Dosage System Date Date Cephalexin [facility] 44187215527 250 MG Orally March 01Aug Active 1 capsule daily 2017 Diltiazem HCl [facility] 02481632001 120 MG Orally Active 1 capsule on ER Once a day an empty stomach in the morning Amiodarone HCl ND 36617224198 200 MG Orally Active 1 tablet Once a day Flomax ND 33947429988 0.4 MG Orally Aug Active 1 capsule Once a day 2018 Keflex [facility] 16735341859 250 MG Orally December 05May Active 1 capsule as directed 2017 Ketoconazole ND 25940823109 2 % Externally Active 1 application Once a day to affected area Breo Ellipta ND 72953459398 100-25 MCG/INH Active 1 puff Inhalation Once a day Nexium ND 28060824695 40MG Active TAKE 1 CAPSULE DAILY Prolia ND 04784516412 60 MG/ML Active not defined Subcutaneous Spiriva ND 33264444598 2.5 microgram January 15January Active 2 puffs Respimat Inhaled Once a 2017 Xarelto ND 40924557404 20 MG Orally Active 1 tablet with Once a day food Clotrimazole ND 54695178183 1 % Externally Active 1 application Twice a day to affected area Ventolin HFA ND 98824550947 108 (90 Base) Active 2 puffs as MCG/ACT needed Inhalation every 6 hrs Spiriva ND 21058035786 18 MCG Active 1 capsule HandiHaler Inhalation Once a day Pacerone ND 53926246476 200MG Active TAKE 1 TABLET DAILY Lasix ND 18230780666 40 MG Orally Active 1 tablet twice a day Celexa ND 48240977311 20 MG Orally Active 1 tablet Once a day Claritin [facility] 89669959282 10 MG Orally Active 1 tablet Once a day Potassium [facility] 61822460171 8 MEQ Orally January 22Jul Active 1 tablet with Chloride ER Twice a day 2017 Estrace ND 41788643076 0.1 MG/GM November Active as directed Vaginal twice 2017 weekly Multivitamin [facility] 01564694781 - Orally Active not defined Adult Results Name Result Date Reference Range Unit Abnormality Flag URINALYSIS AUTO W/O SCOPE (74204) ----LEONEL trace [id number] ----NIT pos [id number] ----PROTEIN neg [id number] ----pH 6.0 [id number] ----GLUCOSE neg [id number] ----KETONES neg [id number] ----SPECIFIC GRAVITY 1.015 [id number] ----BLO neg [id number] Summary Purpose eClinicalWorks Submission
--- OUTSIDE RECORDS SUMMARY | 2018-08-21 17:43 | XMS REPORT ---
[...] Date Status Dosage System Date Spiriva [facility] 49493367923 2.5 microgram January 15January 10, Active 2 puffs Respimat Inhaled Once a 20172018 Results No Known Results Summary Purpose [email or web address] Submission
--- OUTSIDE RECORDS SUMMARY | 2018-08-21 17:44 | XMS REPORT ---
[...] End Status Dosage System Date Date Pacerone [facility] 47917489452 200MG Active TAKE 1 TABLET DAILY Lasix ND 96016559881 40 MG Orally Active 1 tablet twice a day Spiriva [facility] 96628759216 2.5 microgram January Active 2 puffs Respimat Inhaled Once a , , day 2017 2018 Potassium [facility] 53264736385 8 MEQ Orally January Active 1 tablet with Chloride ER Twice a day 18, , food 2017 2017 Ventolin HFA [facility] 14098916449 108 (90 Base) Active 2 puffs as MCG/ACT needed Inhalation every 6 hrs Celexa [facility] 03406284368 20 MG Orally Active 1 tablet Once a day Diltiazem HCl [facility] 62603341285 120 MG Orally Active 1 capsule on ER Once a day an empty stomach in the morning Clotrimazole [facility] 75648269804 1 % Externally Active 1 application Twice a day to affected area Nexium ND 43140321368 40MG Inactive TAKE 1 CAPSULE DAILY Cephalexin ND 48692554971 250 MG Orally February Active 1 capsule daily , 2017 Amiodarone HCl [facility] 62974689108 200 MG Orally Sept Active 1 tablet Once a day 2017 Claritin [facility] 72263505657 10 MG Orally Active 1 tablet Once a day Amiodarone HCl [facility] 40749828011 200 MG Orally Active 1 tablet Once a day Furosemide ND 16329068530 40 MG Active TAKE 1 TABLET TWICE A DAY Breo Ellipta [facility] 37118651433 100-25 MCG/INH Active 1 puff Inhalation Once a day Spiriva [facility] 21237349638 18 MCG Active 1 capsule HandiHaler Inhalation Once a day Flomax [facility] 30221664838 0.4 MG Orally Aug Active 1 capsule Once a day 2018 Keflex ND 91602086763 250 MG Orally December 05May Active 1 capsule as directed 2017 Ketoconazole [facility] 70519553638 2 % Externally Active 1 application Once a day to affected area Estrace ND 96765732205 0.1 MG/GM Active as directed Vaginal twice weekly Xarelto [facility] 15543574847 20 MG Orally Active 1 tablet with Once a day food Pantoprazole [facility] 55193859445 40 MG Orally Active 1 tablet Sodium Once a day Multivitamin [facility] 10716767559 - Orally Active not defined Adult Prolia [facility] 86206120363 60 MG/ML Active not defined Subcutaneous Results No Known Results Summary Purpose eClinicalWorks Submission
--- NOTE | 2018-08-21 19:32 | RAD REPORT ---
EXAM DESCRIPTION: Hakeem Pa And Lat (2 Views)08/21/2018 7:13 pm CLINICAL HISTORY: Cough COMPARISON: July 2018 FINDINGS: Extensive bilateral interstitial lung opacities are present probably represent scarring Mild left upper and left basilar lung opacities probably represent superimposed pneumonia The heart is borderline enlarged
[2018-08-21] MEDS ORDERED: PIPER/TAZO/NS 3.375gm 0 GM/0 ML BAG ONE (21:04)
--- NOTE | 2018-08-21 21:09 | ER ---
Nurse's Notes [facility] Name: Jazmine Waggoner Age: 83 yrs Sex: Female : 1935 Arrival Date: 08/21/2018 Time: 17:42 Bed 6 Private MD: Laurel Curiel Diagnosis: Lobar pneumonia, unspecified organism;Hypoxemia Presentation: 08/21 18:00 Presenting complaint: Child states: SENT BY PCP FOR CXR, BUT CHECKED INTO ER bp OUTPATIENT RADIOLOGY CLOSED. Transition of care: patient was not received from another setting of care. Onset of symptoms is unknown. Risk Assessment: Do you want to hurt yourself or someone else? Patient reports no desire to harm self or others. Initial Sepsis Screen: Does the patient meet any 2 criteria? No. Patient's initial sepsis screen is negative. Does the patient have a suspected source of infection? Yes: Productive cough/pneumonia. Care prior to arrival: None. 18:00 Method Of Arrival: Wheelchair bp 18:00 Acuity: PHI 3 bp Triage Assessment: 18:11 General: Appears distressed, comfortable, Behavior is cooperative, appropriate for age, bp anxious. Pain: Denies pain. Respiratory: Reports shortness of breath cough that is Onset: The symptoms/episode began/occurred 3 DAYS AGO, the patient has moderate shortness of breath. Historical: - Allergies: 18:11 CONTRAST DYE; bp 18:11 Levaquin; bp 18:11 Spiriva with HandiHaler; bp - Home Meds: 18:11 acetaminophen 325 mg Oral tab 2 tabs every 6 hours for Arthritic Pain, Fever [Active]; bp acetaminophen 650 mg Rectal supp 1 suppository every 6 hours for Arthritic Pain, Fever [Active]; ascorbic acid (vitamin C) 1 tab daily [Active]; Atrovent 0.03 % Nasal spry [Active]; Breo Ellipta 100-25 mcg/dose inhalation dsdv 1 puff once daily [Active]; calcium tablet 1 tab twice a day [Active]; citalopram 20 mg tab once daily [Active]; diltiazem HCl 120 mg Oral cpER 2 caps once daily [Active]; docusate sodium 100 mg Oral cap 1 cap once daily [Active]; ipratropium-albuterol inhalation Inhl [Active]; Kassandra-Tussin 100 mg/5 mL Oral liqd 5 mL every 6 hours [Active]; Kassandra-Lanta 200-200-20 mg/5 mL Oral susp 30 mL every 4 hours [Active]; furosemide 20 mg Oral tab 1 tab 2 times per day [Active]; Mucinex 600 mg Oral Ta12 every 12 hours [Active]; Pylera 140-125-125 mg Oral cap 4 times per day [Active]; Nexium 40 mg Oral cpDR 1 cap once daily [Active]; sotalol 80 mg Oral tab 1 tab 2 times per day [Active]; Xarelto 20 mg Oral tab 1 tab once daily [Active]; Spiriva Respimat 2.5 mcg/actuation inhalation mist 2 puffs once daily [Active]; vitamin E 400 unit Oral cap daily [Active]; Prolia 60 mg/mL subcutaneous syrg 1 mL every 6 mo [Active]; Milk of Magnesia 400 mg/5 mL Oral susp 30 mL once daily for constipation [Active]; melatonin 3 mg Oral tab nightly [Active]; folic acid 1 mg Oral tab 1 tab once daily [Active]; fluticasone furoate-vilanterol 100-25mcg 2 spray daily [Active]; - PMHx: 18:11 Atrial Fib; COPD; GERD; Hypertension; bp - Immunization history:: Adult Immunizations up to date. - Social history:: Smoking status: Patient/guardian denies using tobacco, but has a distant history of tobacco abuse. - Ebola Screening: : Patient negative for fever greater than or equal to 101.5 degrees Fahrenheit, and additional compatible Ebola Virus Disease symptoms Patient denies exposure to infectious person Patient denies travel to an Ebola-affected area in the 21 days before illness onset No symptoms or risks identified at this time. Screenin:17 Abuse screen: Denies threats or abuse. Denies injuries from another. Nutritional bp screening: No deficits noted. Tuberculosis screening: No symptoms or risk factors identified. Fall Risk None identified. Assessment: 18:15 General: Appears in no apparent distress. comfortable, slender, Behavior is bp cooperative, appropriate for age, anxious. Pain: Denies pain. Neuro: Level of Consciousness is awake, alert, obeys commands, Oriented to person, place, time, situation, Appropriate for age. Cardiovascular: Rhythm is sinus rhythm. Respiratory: Airway is patent Respiratory effort is even, labored, Respiratory pattern is symmetrical, Breath sounds are coarse bilaterally. GI: No signs and/or symptoms were reported involving the gastrointestinal system. : No signs and/or symptoms were reported regarding the genitourinary system. EENT: No deficits noted. Derm: No deficits noted. Musculoskeletal: Circulation, motion, and sensation intact. Range of motion: intact in all extremities. 19:15 General: Appears in no apparent distress. Behavior is cooperative, appropriate for age. ea Pain: Denies pain. Neuro: Level of Consciousness is awake, alert, obeys commands, Oriented to person, place, time, situation. Respiratory: Airway is patent Respiratory effort is even, Respiratory pattern is tachypnea Breath sounds are coarse bilaterally. GI: No signs and/or symptoms were reported involving the gastrointestinal system. Musculoskeletal: Circulation, motion, and sensation intact. 20:26 Reassessment: Patient and/or family updated on plan of care and expected duration. Pain ea level reassessed. Awaiting on results Patient denies pain at this time. 21:30 Reassessment: Patient and/or family updated on plan of care and expected duration. Pain ea level reassessed. Patient is alert, oriented x 3, equal unlabored respirations, skin warm/dry/pink. 22:23 Reassessment: Patient and/or family updated on plan of care and expected duration. Pain ea level reassessed. Awaiting on room assignment. 23:06 Reassessment: Report given to Jordyn CASTANON on fourth floor. ea Vital Signs: 18:11 BP 143 / 70; Pulse 82; Resp 24; Temp 98; Pulse Ox 95% on 2 lpm NC; Weight 72.57 kg; bp Height 0 ft. 2 in. (6 cm); 19:32 BP 139 / 76; Pulse 88; Resp 23; Pulse Ox 93% on 2 lpm NC; ea 20:27 BP 139 / 62; Pulse 81; Resp 22; Pulse Ox 94% on 2 lpm NC; ea 20:55 BP 151 / 66; Pulse 74; Resp 22; Pulse Ox 98% on 2 lpm NC; mw2 21:45 BP 105 / 50; Pulse 78; Resp 18; Pulse Ox 95% on 2 lpm NC; ea 22:30 BP 124 / 56; Pulse 75; Resp 18; Pulse Ox 97% ; ea 23:15 BP 113 / 55; Pulse 73; Resp 18; Pulse Ox 95% on 2 lpm NC; ea 18:11 Body Mass Index 78883.66 (72.57 kg, 6 cm) bp ED Course: 17:42 Patient arrived in ED. sb2 17:42 Laurel Curiel MD is Private Physician. sb2 17:58 Dillon Lira, RN is Primary Nurse. bp 17:58 Sarath Lugo MD is Attending Physician. gs 18:01 Triage completed. bp 18:11 Arm band placed on. bp 18:17 Patient has correct armband on for positive identification. Bed in low position. Call bp light in reach. Side rails up X2. 19:02 Patient moved to radiology via wheelchair. az 19:12 X-ray completed. Patient tolerated procedure well. az 19:12 Patient moved back from radiology. az 20:55 Initial lab(s) drawn, by me, sent to lab. First set of blood cultures drawn by me. aa1 Inserted saline lock: 20 gauge in right forearm, using aseptic technique. Blood collected. 21:08 Babita Will MD is Hospitalizing Provider. gs 21:10 Second set of blood cultures drawn by me. aa1 22:22 No provider procedures requiring assistance completed. Patient admitted, IV remains in ea place. Administered Medications: 21:20 Drug: Zosyn 3.375 grams Route: IVPB; Infused Over: 60 mins; Site: right forearm; ea 22:00 Follow up: Response: No adverse reaction; IV Status: Completed infusion ea Outcome: 21:08 Decision to Hospitalize by Provider. gs 22:22 Instructed on the need for admit, Demonstrated understanding of instructions. ea 23:28 Admitted to Med/surg accompanied by tech, room 420, with oxygen, with chart, Report ea called to Jordyn CASTANON 23:28 Condition: stable 23:32 Patient left the ED. ea Signatures: Mary Kate Diaz RN RN aa1 Anita Soto RN RN ea Starr, Gregory, MD MD Dillon Lira, RN RN Franca Calvillo sb2 Aron Casiano mw2 Melony Wright ne Corrections: (The following items were deleted from the chart) 20:59 20:55 BP 151 / 66; Pulse 74bpm; Resp 22bpm; Pulse Ox 98% 2 lpm; mw2 mw2
--- NOTE | 2018-08-21 21:09 | EDPHYS ---
Physician Documentation [facility] Name: Jazmine Waggoner Age: 83 yrs Sex: Female : 1935 Arrival Date: 08/21/2018 Time: 17:42 Bed 6 Private MD: Laurel Curiel ED Physician Sarath Lugo Historical: - Allergies: 08/21 18:11 CONTRAST DYE; bp 18:11 Levaquin; bp 18:11 Spiriva with HandiHaler; bp - Home Meds: 18:11 acetaminophen 325 mg Oral tab 2 tabs every 6 hours for Arthritic Pain, Fever [Active]; bp acetaminophen 650 mg Rectal supp 1 suppository every 6 hours for Arthritic Pain, Fever [Active]; ascorbic acid (vitamin C) 1 tab daily [Active]; Atrovent 0.03 % Nasal spry [Active]; Breo Ellipta 100-25 mcg/dose inhalation dsdv 1 puff once daily [Active]; calcium tablet 1 tab twice a day [Active]; citalopram 20 mg tab once daily [Active]; diltiazem HCl 120 mg Oral cpER 2 caps once daily [Active]; docusate sodium 100 mg Oral cap 1 cap once daily [Active]; ipratropium-albuterol inhalation Inhl [Active]; Kassandra-Tussin 100 mg/5 mL Oral liqd 5 mL every 6 hours [Active]; Kassandra-Lanta 200-200-20 mg/5 mL Oral susp 30 mL every 4 hours [Active]; furosemide 20 mg Oral tab 1 tab 2 times per day [Active]; Mucinex 600 mg Oral Ta12 every 12 hours [Active]; Pylera 140-125-125 mg Oral cap 4 times per day [Active]; Nexium 40 mg Oral cpDR 1 cap once daily [Active]; sotalol 80 mg Oral tab 1 tab 2 times per day [Active]; Xarelto 20 mg Oral tab 1 tab once daily [Active]; Spiriva Respimat 2.5 mcg/actuation inhalation mist 2 puffs once daily [Active]; vitamin E 400 unit Oral cap daily [Active]; Prolia 60 mg/mL subcutaneous syrg 1 mL every 6 mo [Active]; Milk of Magnesia 400 mg/5 mL Oral susp 30 mL once daily for constipation [Active]; melatonin 3 mg Oral tab nightly [Active]; folic acid 1 mg Oral tab 1 tab once daily [Active]; fluticasone furoate-vilanterol 100-25mcg 2 spray daily [Active]; - PMHx: 18:11 Atrial Fib; COPD; GERD; Hypertension; bp - Immunization history:: Adult Immunizations up to date. - Social history:: Smoking status: Patient/guardian denies using tobacco, but has a distant history of tobacco abuse. - Ebola Screening: : Patient negative for fever greater than or equal to 101.5 degrees Fahrenheit, and additional compatible Ebola Virus Disease symptoms Patient denies exposure to infectious person Patient denies travel to an Ebola-affected area in the 21 days before illness onset No symptoms or risks identified at this time. Vital Signs: 18:11 BP 143 / 70; Pulse 82; Resp 24; Temp 98; Pulse Ox 95% on 2 lpm NC; Weight 72.57 kg; bp Height 0 ft. 2 in. (6 cm); 19:32 BP 139 / 76; Pulse 88; Resp 23; Pulse Ox 93% on 2 lpm NC; ea 20:27 BP 139 / 62; Pulse 81; Resp 22; Pulse Ox 94% on 2 lpm NC; ea 20:55 BP 151 / 66; Pulse 74; Resp 22; Pulse Ox 98% on 2 lpm NC; mw2 21:45 BP 105 / 50; Pulse 78; Resp 18; Pulse Ox 95% on 2 lpm NC; ea 22:30 BP 124 / 56; Pulse 75; Resp 18; Pulse Ox 97% ; ea 23:15 BP 113 / 55; Pulse 73; Resp 18; Pulse Ox 95% on 2 lpm NC; ea 18:11 Body Mass Index 21803.66 (72.57 kg, 6 cm) bp MDM: 18:40 Patient medically screened. 08/21 20:43 Order name: NT PRO-BNP 08/21 20:43 Order name: Basic Metabolic Panel 08/21 20:43 Order name: CBC with Diff 08/21 20:43 Order name: LFT's 08/21 20:43 Order name: Magnesium 08/21 20:43 Order name: Troponin (emerg Dept Use Only) 08/21 18:41 Order name: XRAY Chest Pa And Lat (2 Views) 08/21 20:43 Order name: Blood Culture* 08/21 21:32 Order name: CBC with Automated Diff [facility] 08/21 21:51 Order name: Basic Metabolic Panel [facility] 08/21 21:51 Order name: Liver (Hepatic) Function [facility] 08/21 21:51 Order name: Troponin (Emerg Dept Use Only) [facility] 08/21 21:51 Order name: NT PRO-BNP [facility] 08/21 21:51 Order name: Magnesium [facility] 08/21 19:34 Order name: RAD; Complete Time: 20:34 [facility] 08/21 20:43 Order name: EKG; Complete Time: 20:44 08/21 20:43 Order name: Cardiac monitoring; Complete Time: 22:19 08/21 20:43 Order name: EKG - Nurse/Tech; Complete Time: 22:19 08/21 20:43 Order name: IV Saline Lock; Complete Time: 21:17 08/21 20:43 Order name: Labs collected and sent; Complete Time: 21:17 08/21 20:43 Order name: O2 Per Protocol; Complete Time: 21:17 08/21 20:43 Order name: O2 Sat Monitoring; Complete Time: 21:17 Administered Medications: 21:20 Drug: Zosyn 3.375 grams Route: IVPB; Infused Over: 60 mins; Site: right forearm; ea 22:00 Follow up: Response: No adverse reaction; IV Status: Completed infusion ea Disposition: 08/21/18 21:08 Hospitalization ordered by Babita Will for Inpatient Admission. Preliminary diagnosis are Lobar pneumonia, unspecified organism, Hypoxemia. - Bed requested for Telemetry/MedSurg (Inpatient). - Status is Inpatient Admission. ea - Condition is Stable. - Problem is new. - Symptoms have improved. UTI on Admission? No Addendum: 09/02/2018 02:04 Addendum: cc-cough sob - hpi - onset few days ago, associated symptoms cough sob sent g s by pcp for cxr denies cp, + fever productive cough. NN, VS, ALL PMH reviewed and agree Sochx-lives at home ROS-all reviewed and negative PE-VSS except sao2 little low Gen awake and alert Head - atraumatic, normal ENT- airway open pharynx normal Neck-supple no mass CV-irregular no murmur P- tachypnea crackles bibasilar gi soft nontender ms-normal circulation no deformity skin-no rash warm neuro-cn,motor,sensory no deficits MDM-chf,copd,pneumonia,cad discussed need for admission with lobar pneumonia reviewed labs xrays CC-30 minutes. Signatures: Dispatcher [employer] EDMS Celena Garrett RN RN cg Anita Soto RN RN ea Sarath Lugo MD MD gs Peltier, Brian, RN RN bp Corrections: (The following items were deleted from the chart) 08/21 22:21 21:08 Hospitalization Ordered by Babita Will MD for Inpatient Admission. Preliminary cg diagnosis is Lobar pneumonia, unspecified organism; Hypoxemia. Bed requested for Telemetry/MedSurg (Inpatient). Status is Inpatient Admission. Condition is Stable. Problem is new. Symptoms have improved. UTI on Admission? No. 23:32 22:21 08/21/2018 21:08 Hospitalization Ordered by Babita Will MD for Inpatient ea Admission. Preliminary diagnosis is Lobar pneumonia, unspecified organism; Hypoxemia. Bed requested for Telemetry/MedSurg (Inpatient). Status is Inpatient Admission. Condition is Stable. Problem is new. Symptoms have improved. UTI on Admission? No. cg
[2018-08-21] MEDS ORDERED: PIPER/TAZO/NS 3.375gm 3.375 GM/100 ML BAG ONE (21:23)
[2018-08-21 21:29] LABS: Absolute Lymphocytes (CBC) 1.3 K/uL (0.7-4.9); Absolute Monocytes 0.5 K/uL (0.1-1.3); Absolute Neutrophil 6.1 K/uL (1.8-8.0); Basophils % 1.1 % (0-1.3); Eosinophils % 1.7 % (0-4.4); Hematocrit 29.5 % (36.0-45.0); Lymphocytes % 16.2 % (15.3-44.8); MPV 8.1 fL (7.6-11.3); Monocytes % 6.6 % (3.3-12.3); RBC Red Blood Cell Count 3.18 M/uL (3.86-4.86)
[2018-08-21 21:50] LABS: ALT/SGPT 15 U/L (12-78); AST/SGOT 14 U/L (15-37); Alkaline Phosphatase 79 U/L (45-117); BUN Blood Urea Nitrogen 11 mg/dL (7-18); Bicarbonate 36 mmol/L (21-32); Bilirubin Direct 0.1 mg/dL (0-0.2); Bilirubin Total 0.3 mg/dL (0.2-1.0); Glucose Level 82 mg/dL (74-106); Magnesium 2.4 mg/dL (1.8-2.4); NT PRO-BNP 204 pg/mL (<450); Potassium 3.5 mmol/L (3.5-5.1); Protein, Total 6.9 g/dL (6.4-8.2); Sodium Level 141 mmol/L (136-145); Troponin (Emerg Dept Use Only) < 0.02 ng/mL (0.0-0.045)
[2018-08-21] MEDS ORDERED: ACETAMINOPHEN 500 MG TAB PO PRN (21:56)
[2018-08-21] MEDS ORDERED: ONDANSETRON 4 MG/2 ML VIAL IV PRN (21:56)
[2018-08-21] MEDS ORDERED: MAGNESIUM HYDROXIDE 8% 30 ML PO PRN (21:56)
[2018-08-21 23:58] VITALS: BMI 25.8
[2018-08-22] MEDS: NA CHLORIDE 0.9% 1,000 ML IV SCH ×2 (00:31→17:14)
[2018-08-22] MEDS: CODEINE 30MG/APAP 300MG TAB PO SCH ×5 (00:51→17:00)
[2018-08-22] MEDS: ALBUTEROL 2.5 MG/3 ML NEB SOL NEB PRN ×2 (02:15→07:15)
[2018-08-22] MEDS: IPRATROPIUM BROM 0.5MG/2.5ML NEB PRN ×2 (02:15→07:15)
[2018-08-22] MEDS ORDERED: TEMAZEPAM 15 MG CAP PO ONE (03:34)
[2018-08-22] MEDS ORDERED: GUAIFENESIN/CODEINE 5ML UCUP PO PRN (03:34)
[2018-08-22 04:40] LABS: Absolute Lymphocytes (CBC) 1.3 K/uL (0.7-4.9); Absolute Monocytes 0.6 K/uL (0.1-1.3); Absolute Neutrophil 5.6 K/uL (1.8-8.0); Basophils % 0.9 % (0-1.3); Eosinophils % 1.5 % (0-4.4); Hematocrit 28.5 % (36.0-45.0); Lymphocytes % 16.6 % (15.3-44.8); MPV 8.4 fL (7.6-11.3); Monocytes % 7.5 % (3.3-12.3); RBC Red Blood Cell Count 3.07 M/uL (3.86-4.86)
[2018-08-22 04:49] LABS: Albumin 2.6 g/dL (3.4-5.0); Bilirubin Total 0.2 mg/dL (0.2-1.0); Magnesium 2.2 mg/dL (1.8-2.4); Phosphorus 3.4 mg/dL (2.5-4.9); Potassium 3.3 mmol/L (3.5-5.1); Protein, Total 6.1 g/dL (6.4-8.2)
[2018-08-22] MEDS ORDERED: POTASSIUM CL SA 10 MEQ TAB PO ONE ×2 (05:19→09:00)
[2018-08-22] MEDS ORDERED: PIPER/TAZO/NS 3.375gm 3.375 GM/100 ML BAG ONE (05:39)
[2018-08-22] MEDS: METHYLPREDNISOLONE 125 MG INJ IV SCH ×3 (05:55→17:20)
[2018-08-22] MEDS ORDERED: CEFTRIAXONE 1 GM/NS 50 ML 1 GM/50 ML BAG IV SCH (06:00)
[2018-08-22] MEDS ORDERED: PIPER/TAZO/NS 3.375gm 3.375 GM/100 ML BAG IVPB SCH ×2 (06:00)
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
[2018-08-22] MEDS: CALCIUM CARB 500MG/VIT D 200 IU TAB PO SCH ×2 (08:42→09:00)
[2018-08-22] MEDS: FUROSEMIDE 20 MG TABLET PO SCH ×2 (08:43→09:00)
[2018-08-22] MEDS: ASCORBIC ACID 500 MG TABLET PO SCH ×2 (08:43→09:00)
[2018-08-22] MEDS: AMIODARONE HCL 200 MG TAB PO SCH ×2 (08:43→09:00)
[2018-08-22] MEDS: PIPER/TAZO/NS 3.375gm 3.375 GM/100 ML BAG IVPB SCH ×2 (08:44→17:13)
[2018-08-22] MEDS ORDERED: AZITHROMYCIN IV 250 MG in NA CHLORIDE 0.9% 250 ML IVPB SCH (09:00)
[2018-08-22] MEDS ORDERED: ENOXAPARIN 40 MG/0.4 ML SQ SCH (09:00)
--- NOTE | 2018-08-22 10:22 | RAD REPORT ---
EXAM DESCRIPTION: CT - Thorax Wo Con CLINICAL HISTORY: Chest pain sob COMPARISON: Thorax Wo Con dated 08/04/2017; Chest Pa And Lat (2 Views) dated 08/21/2018 FINDINGS: COPD is noted. Poorly defined lung opacities are present in both upper lobes, greater on t he left. Ill-defined airspace opacity is also present in the right lung base with traction bronchiect asis, unchanged since 2017 comparative study. Ill-defined opacities are present in the left lung base , improved since the comparative study. Small bilateral pleural effusions, greater on the right. No p neumothorax. A few mildly prominent mediastinal lymph nodes are present. No concerning bony finding. Moderate hiatal hernia. 2 cm right adrenal lesion appears unchanged. All CT scans are performed using dose optimization technique as appropriate and may include automated exposure control or mA/KV adjustment according to patient size. IMPRESSION: COPD with ill-defined apical lung opacities, greater on the left, suspicious for infecti on/ pneumonia. Interstitial opacities in left lung base appear improved since 08/04/2017 study. Chronic right basilar lung opacification a traction bronchiectasis appears unchanged.
--- NOTE | 2018-08-22 10:23 | EKG ---
Test Date: 2018-08-21 Test Time: 22:03:23 [employer]: MILANA MEASUREMENT RESULTS: Intervals: Rate: 76 NJ: 218 QRSD: 86 QT: 366 QTc: 411 Browns: P: 59 NJ: 218 QRS: -2 T: 79 INTERPRETIVE STATEMENTS: Sinus rhythm with 1st degree AV block Nonspecific T wave abnormality Abnormal ECG Compared to ECG 08/05/2018 03:57:55 First degree AV block now present T-wave abnormality now present Electronically Signed On 08-22-18 10:21:52 [employer] INS[employer] FINAL by Gustavo Shook
[2018-08-22 12:46] VITALS: BP 156/72; TEMP 98.4
--- NOTE | 2018-08-22 13:10 | RAD REPORT ---
EXAM DESCRIPTION: RAD - Barium Swallow Modified - 08/22/2018 12:48 pm CLINICAL HISTORY: dysphagia COMPARISON: Barium Swallow Modified dated 12/26/2017 TECHNIQUE: The patient was given liquid, semi-solid and solid forms of barium. Lateral view fluorosc opic imaging was performed in conjunction with speech pathology service. FINDINGS: Laryngeal penetration: Not cleared with thin, nectar, honey Gross Aspiration: No cough with thin, nectar, honey. after the swallow on refluxed material. Pharyngeal residue: Pyriform, moderate with thin, nectar, severe with honey, pudding, regular solid. Severe Polyp-like structural abnormality below ues opening Total fluoroscopy time: 3 minutes and 34 seconds.
[2018-08-22] MEDS ORDERED: RIVAROXABAN 20 MG TABLET PO SCH (17:00)
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
[2018-08-22 18:11] VITALS: O2SAT 96
[2018-08-22] MEDS ORDERED: FLUTICASONE IH SCH (21:00)
[2018-08-22] MEDS ORDERED: VILANTEROL IH SCH (21:00)
[2018-08-22] MEDS ORDERED: RIVAROXABAN 10 MG TABLET PO SCH (23:16)
== END 2018-08-22 19:20 | disposition short-term general hospital (02) | DRG 190 ==
LOC: ER 17:39 → ERHOLD 21:56 → 4TH 23:18 → OBSVTOIN 08-22 15:19
PROVIDERS: ADMIT Hospitalist; ATTEND Hospitalist
DX: J44.1 Chronic obstructive pulmonary disease with (acute) exacerbation (principal); J69.0 Pneumonitis due to inhalation of food and vomit; K22.5 Diverticulum of esophagus, acquired; Z99.81 Dependence on supplemental oxygen; R13.10 Dysphagia, unspecified; I48.91 Unspecified atrial fibrillation; I10 Essential (primary) hypertension; M19.90 Unspecified osteoarthritis, unspecified site; K21.9 Gastro-esophageal reflux disease without esophagitis; Z87.891 Personal history of nicotine dependence; Z91.041 Radiographic dye allergy status
CPT/HCPCS: 36415; 71046; 71250; 74230; 80048; 80053; 80061; 80076; 83735; 83880; 84100; 84484; 85025; 87040; 87070; 87077; 87186; 87205; 92611; 93005; 94640; 94760; 96365; 99285; J2543; J2930; J7030